=== PATIENT | male | born 1950 | race Hispanic/Latino ===

== ENCOUNTER 2016-07-28 06:07 | Inpatient (IN) | payer MEDICARE ==
[2016-07-28] MEDS ORDERED: NACL 0.9% 1000 ML 1,000 ML IV ONE ×2 (07:11→08:28)
[2016-07-28] MEDS ORDERED: MORPHINE IV ONE (07:11)
[2016-07-28] MEDS ORDERED: ZOFRAN IV ONE (07:11)
--- NOTE | 2016-07-28 07:51 | XRay Report ---
Single view chest: History: Trauma. Findings: Borderline cardiomegaly. Trachea is midline. No consolidation, pneumothorax or pleural effusion. Impression: No acute cardiopulmonary findings.
[2016-07-28 07:52] LABS: Basophils % (Auto) 0.4 % (0.0-1.8); Hematocrit 41.7 % (35.5-45.6); Hemoglobin 13.4 gm/dl (11.8-15.2); Mean Corpuscular HGB Conc 32 % (32-34); Mean Corpuscular Hemoglobin 30 pg (28-32); Mean Corpuscular Volume 94 fl (84-94); Platelet Count 235 K/mm3 (140-440); Red Blood Count 4.42 M/mm3 (3.65-5.03); Red Cell Distribution Width 14.3 % (13.2-15.2); White Blood Count 13.2 K/mm3 (4.5-11.0)
--- NOTE | 2016-07-28 07:54 | Admit Criteria Form ---
Admission Criteria Documentation: MUSCULOSKELETAL DISEASE GRG Clinical Indications for Admission to Inpatient Care (Place 'X' for any and all applicable criteria): Hospital admission is needed for appropriate care of the patient because of ANY ONE of the following: [X ]I. Fracture, dislocation, or other musculoskeletal injury requiring inpatient care(medical) as indicated by ANY ONE of the following(4)(5)(6)(7) [ ]a) Vertebral fracture requiring observation for instability or neurologic compromise (8) [ ]b) Compartment syndrome (proven or cannot be ruled out during observation level of care) (9) [ ]c) Limb-threatening injury [ ]d) Major injury requiring inpatient stabilization such as traction initiation or external fixation before internal fixation or closure of complex or open fracture [ X]e) Major injury requiring inpatient treatment after emergency or observation level care (as appropriate) [ ]f) Severe pain requiring acute inpatient management [ ]II. Newly diagnosed or suspected bone, joint, or orthopedic device infection (e.g., osteomyelitis, septic arthritis) needing ANY ONE of the following(1)(2)(3) [ ]a) IV antibiotics that cannot be initiated in other than inpatient setting (e.g., patient too unstable or home infusion not available) [ ]b) Device removal or replacement [ ]c) Bone or soft tissue debridement [ ]d) Joint drainage (drain placement or repetitive aspirations) [ ]III. Severe rheumatologic disease (e.g., systemic lupus erythematosus, rheumatoid arthritis) with complications or comorbidities (Also use Optimal Recovery Care Criteria or General Recovery Criteria as appropriate on the basis of predominant condition), including ANY ONE of the following(10 )(11)(12)(13) [ ]a) Severe infection (e.g., TRAY SETTER infection, sepsis) (14) [ ]b) Respiratory complications, including ANY ONE of the following: [ ]i) Pleural effusion with respiratory compromise [ ]ii) Pulmonary hypertension with congestive failure [ ]iii) Respiratory failure [ ]iv) Pulmonary hemorrhage (15) [ ]c) Hematologic disease, including ANY ONE of the following: [ ]i) Coagulopathy with bleeding [ ]ii) Thrombosis with hypercoagulable state [ ]iii) Thrombotic thrombocytopenic purpura [ ]d) Cerebritis with seizures, psychosis, or other severe abnormalities [ ]e) Vertebral destruction with monitoring needed for cervical myelopathy& possible respiratory compromise [ ]f) Exacerbation that requires inpatient treatment (e.g., intravenous immunosuppression) (16) [ ]g) Acute renal failure [ ]IV. Severe vasculitis with complications or comorbidities (Also use Optimal Recovery Care Criteria or General Recovery Criteria as appropriate on the basis of predominant condition), including ANY ONE of the following(11)(12)(17)(18)(19)(20) [ ]a) TRAY SETTER vasculitis with seizures, psychosis, or other severe abnormalities (22) [ ]b) Renal failure (16) [ ]c) Pulmonary hemorrhage (15) [ ]d) Cerebral infarction [ ]e) Gastrointestinal ischemia [ ]f) Gangrene or threatened amputation [ ]g) Exacerbation that requires inpatient treatment (e.g., intravenous immunosuppression) (19)(21) [ ]V. Severe myopathy as indicated by ANY ONE of the following (28)(29) [ ]a) New onset of airway compromise or inability to swallow [ ]b) Respiratory deterioration with observation needed for impending respiratory failure [ ]c) Exacerbation that requires inpatient treatment (e.g., intravenous immunosuppression) [ ]. Severe gout (crystal arthropathy) as indicated by ANY ONE of the following (23)(24) [ ]a) Severe pain requiring acute inpatient management [ ]b) Exacerbation that requires inpatient treatment (e.g., intravenous treatment) [ ]VII.Rhabdomyolysis and ANY ONE of the following (25)(26)(27) [ ]a) Acute renal failure [ ]b) Need for intravenous hydration after emergency or observation level care (as appropriate) [ ]c) Inability to maintain oral hydration [ ]d) Change in mental status [ ]e) Electrolyte abnormality that remains after emergency or observation level care (as appropriate) [ ]VIII Post amputation complication, as indicated by ANY ONE of the following [ ]a) Infection [ ]b) Dehiscence [ ]c) Myodesis failure [ ]IX. Severe pain requiring acute inpatient management as indicated by ALL of the following (30)(31)(32) [ ]a) Continuous or frequent (e.g., every 2 to 4 hrs) parenteral analgesics required [A] [ ]b) Rapid improvement expected from treatment or acute intervention ( e.g., surgery, anesthesia procedure[B] [ ]X. Musculoskeletal Disease and ALL of the following: [ ]a) Symptom or finding for which emergency and observation care have failed or are not considered appropriate (Use General Criteria: Observation Care as appropriate) [ ]b) Presence of ANY ONE of the following [ ]i) A General Admission Criteria [ ]ii) A Pediatric General Admission Criteria The original [facility] content created by [facility] has been revised. The portions of the content which have been revised are identified through the use of italic text or in bold, and [facility] has neither reviewed nor approved the modified material. All other unmodified content is copyright [facility]. Please see references footnoted in the original [facility] edition 2016 Admission Criteria Met: Yes
--- NOTE | 2016-07-28 07:55 | XRay Report ---
Left hip 2 views: History: Fall, pain. Findings: There is intertrochanteric nondisplaced fracture noted. No evidence of dislocation hip. Impression: Intertrochanteric fracture left femur.
[2016-07-28 08:01] LABS: Bilirubin,Urine NEG (Negative); Blood,Urine MOD (Negative); Ketones,Urine NEG (Negative); Leukocyte Esterase,Urine NEG (Negative); Mucus,Urine FEW /HPF; Nitrite,Urine NEG (Negative); Urobilinogen,Urine < 2.0 mg/dL (<2.0); WBC,Urine < 1.0 /HPF (0.0-6.0)
[2016-07-28 08:03] LABS: INR 0.94 (0.87-1.13)
[2016-07-28 08:04] LABS: Partial Thromboplastin Time 24.7 Sec. (24.2-36.6)
[2016-07-28 08:17] LABS: Anion Gap 27 mmol/L; BUN/Creatinine Ratio 22.66; Blood Urea Nitrogen 34 mg/dL (9-20); Carbon Dioxide 17 mmol/L (22-30); Chloride 106.8 mmol/L (98-107); Creatine Kinase 228 units/L (55-170); Glucose 98 mg/dL (75-100); Potassium 4.8 mmol/L (3.6-5.0); Sodium 146 mmol/L (137-145)
--- NOTE | 2016-07-28 08:26 | Emergency Department Report ---
ED General Adult HPI - General Chief complaint: Extremity Injury, Lower Stated complaint: FALL Time Seen by Provider: 07/28/16 06:45 Source: patient, EMS Mode of arrival: Stretcher Limitations: No Limitations - History of Present Illness Initial comments: The patient admits to drinking a pint of alcohol last night. He states he does have a residence and lives with a woman. He is not saying particularly kind things about his roommate at this juncture. In any case he believes he tripped and he fell down apparently injuring his left hip. Denies any other injury. He denies loss of consciousness. He was transferred reported via EMS for evaluation of hip pain. He denies neck or back pain. He denies intercurrent illness. -: Sudden Location: left, lower extremity Radiation: non-radiation Severity scale (0 -10): 10 Quality: aching Consistency: constant Improves with: none Worsens with: none Associated Symptoms: denies other symptoms Treatments Prior to Arrival: none - Related Data Home Medications Medication Instructions Recorded Confirmed Last Taken FLUoxetine [PROzac] 20 mg PO QDAY 12/26/14 12/26/14 12/26/14 Losartan [Cozaar] 50 mg PO QDAY 12/26/14 12/26/14 12/26/14 Allergies Allergy/AdvReac Type Severity Reaction Status Date / Time No Known Allergies Allergy Verified 08/14/13 22:42 ED Review of Systems ROS: Stated complaint: FALL Other details as noted in HPI Constitutional: denies: chills, fever Eyes: denies: eye pain, eye discharge, vision change ENT: denies: ear pain, throat pain Respiratory: denies: cough, shortness of breath, wheezing Cardiovascular: denies: chest pain, palpitations Endocrine: no symptoms reported Gastrointestinal: denies: abdominal pain, nausea, diarrhea Genitourinary: denies: urgency, dysuria Musculoskeletal: as per HPI. denies: back pain, joint swelling, arthralgia Skin: denies: rash, lesions Neurological: denies: headache, weakness, paresthesias Psychiatric: denies: anxiety, depression Hematological/Lymphatic: denies: easy bleeding, easy bruising ED Past Medical Hx - Past Medical History Previous Medical History?: Yes Hx Hypertension: Yes Hx Kidney Stones: Yes Hx Psychiatric Treatment: Yes Additional medical history: depression - Surgical History Past Surgical History?: Yes Additional Surgical History: colorectal surg - Social History Smoking Status: Current Every Day Smoker Substance Use Type: Alcohol - Medications Home Medications: Home Medications Medication Instructions Recorded Confirmed Last Taken Type FLUoxetine [PROzac] 20 mg PO QDAY 12/26/14 12/26/14 12/26/14 History Losartan [Cozaar] 50 mg PO QDAY 12/26/14 12/26/14 12/26/14 History ED Physical Exam - General Limitations: No Limitations General appearance: alert, in no apparent distress - Head Head exam: Present: atraumatic, normocephalic - Eye Eye exam: Present: normal appearance, PERRL, EOMI. Absent: scleral icterus - ENT ENT exam: Present: mucous membranes moist - Neck Neck exam: Present: normal inspection. Absent: tenderness, meningismus - Respiratory Respiratory exam: Present: normal lung sounds bilaterally. Absent: respiratory distress - Cardiovascular Cardiovascular Exam: Present: regular rate, normal rhythm. Absent: systolic murmur, diastolic murmur, rubs, gallop - GI/Abdominal GI/Abdominal exam: Present: soft, normal bowel sounds. Absent: distended, tenderness, guarding, rebound, rigid - Rectal Rectal exam: Present: deferred - Extremities Exam Extremities exam: Present: other (tenderness and possible shortening hip/lower extremity) - Back Exam Back exam: Present: normal inspection - Neurological Exam Neurological exam: Present: alert, oriented X3, CN II-XII intact. Absent: motor sensory deficit - Psychiatric Psychiatric exam: Present: agitated (mildly), anxious - Skin Skin exam: Present: warm, dry, intact, normal color. Absent: rash ED Course Vital Signs 07/28/16 07/28/16 07/28/16 06:19 06:28 07:20 Temperature 97.1 F L Pulse Rate 83 84 Respiratory 18 18 Rate Blood Pressure 205/83 Blood Pressure 205/83 206/103 [Left] O2 Sat by Pulse 97 97 98 Oximetry 07/28/16 07:21 Temperature Pulse Rate Respiratory 18 Rate Blood Pressure Blood Pressure [Left] O2 Sat by Pulse Oximetry - Reevaluation(s) Reevaluation #1: Discussed with Dr. Fletcher. He states he will operate this afternoon keep nothing by mouth. Discussed with Dr. Manning he will admit. 07/28/16 08:56 ED Medical Decision Making - Lab Data Result diagrams: 07/28/16 07:26 07/28/16 07:26 Laboratory Results - last 24 hr 07/28/16 07/28/16 07/28/16 07:26 07:26 07:26 WBC 13.2 H RBC 4.42 Hgb 13.4 Hct 41.7 MCV 94 MCH 30 MCHC 32 RDW 14.3 Plt Count 235 Lymph % (Auto) 5.2 L [place] % (Auto) 6.1 Eos % (Auto) 0.0 Baso % (Auto) 0.4 Lymph # 0.7 L [place] # 0.8 Eos # 0.0 Baso # 0.1 Seg Neutrophils % 88.3 H Seg Neutrophils # 11.6 H PT 12.5 INR 0.94 APTT 24.7 Sodium 146 H Potassium 4.8 Chloride 106.8 Carbon Dioxide 17 L Anion Gap 27 BUN 34 H Creatinine 1.5 Estimated GFR 47 BUN/Creatinine Ratio 22.66 Glucose 98 Calcium 9.0 Phosphorus Total Creatine Kinase 228 H Troponin T < 0.010 Urine Color Urine Turbidity Urine pH Ur Specific [place] Urine Protein Urine Glucose (UA) Urine Ketones Urine Blood Urine Nitrite Urine Bilirubin Urine Urobilinogen Ur Leukocyte Esterase Urine WBC (Auto) Urine RBC (Auto) Urine Mucus Blood Type Antibody Screen 07/28/16 07/28/16 07/28/16 07:26 07:26 07:36 WBC RBC Hgb Hct MCV MCH MCHC RDW Plt Count Lymph % (Auto) [place] % (Auto) Eos % (Auto) Baso % (Auto) Lymph # [place] # Eos # Baso # Seg Neutrophils % Seg Neutrophils # PT INR APTT Sodium Potassium Chloride Carbon Dioxide Anion Gap BUN Creatinine Estimated GFR BUN/Creatinine Ratio Glucose Calcium Phosphorus 4.0 Total Creatine Kinase Troponin T Urine Color Straw Urine Turbidity Clear Urine pH 5.0 Ur Specific [place] 1.013 Urine Protein 100 mg/dl Urine Glucose (UA) Neg Urine Ketones Neg Urine Blood Mod Urine Nitrite Neg Urine Bilirubin Neg Urine Urobilinogen < 2.0 Ur Leukocyte Esterase Neg Urine WBC (Auto) < 1.0 Urine RBC (Auto) 1.0 Urine Mucus Few Blood Type B POSITIVE Antibody Screen Negative - Radiology Data interpreted by me: Intertrochanteric hip fracture left. Chest x-ray no acute process. Critical care attestation.: If time is entered above; I have spent that time in minutes in the direct care of this critically ill patient, excluding procedure time. ED Disposition Clinical Impression: Renal insufficiency, Metabolic acidosis, increased anion gap, Prerenal azotemia , Uncontrolled hypertension Intertrochanteric fracture of left hip Qualifiers: Encounter type: initial encounter Fracture type: closed Qualified Code(s): S72.142A - Displaced intertrochanteric fracture of left femur, initial encounter for closed fracture Disposition: OP ADMITTED IP TO THIS HOSP Is pt being admited?: Yes Does the pt Need Aspirin: No (preop) Condition: Stable Instructions: Hypertension (ED) Referrals: PRIMARY CARE, [Primary Care Provider] - 3-5 Days Time of Disposition: 08:56
[2016-07-28] MEDS ORDERED: NORMODYNE IV ONE ×2 (08:40→09:46)
[2016-07-28] MEDS ORDERED: NORVASC PO ONE (09:06)
--- NOTE | 2016-07-28 09:19 | History and Physical Report ---
History of Present Illness Date of examination: 07/28/16 Date of admission: 07/28/16 Chief complaint: Fracture left hip from a fall History of present illness: Patient is a 66-year-old gentleman who fell after drinking a pint of alcohol. Was having pain in the left hip on arrival to the emergency department. X-ray of the hip showed left intratrochanteric fracture. The patient was found to be 200 110. Had elevated BUN/creatinine was as well as a total CK levels. The emergency room doctor, Dr. Rivas contacted the orthopedic surgeon Dr. Fletcher, who is planning for surgery today. Past History Past Medical History: hypertension Social history: denies: smoking, alcohol abuse Family history: denies: no significant family history Medications and Allergies Allergies Allergy/AdvReac Type Severity Reaction Status Date / Time No Known Allergies Allergy Verified 08/14/13 22:42 Home Medications Medication Instructions Recorded Confirmed Last Taken Type FLUoxetine [PROzac] 20 mg PO QDAY 12/26/14 12/26/14 12/26/14 History Losartan [Cozaar] 50 mg PO QDAY 12/26/14 12/26/14 12/26/14 History Active Meds: Active Medications Amlodipine Besylate (Norvasc) 10 mg PO ONCE ONE Stop: 07/28/16 09:07 Fluoxetine HCl (Prozac) 20 mg PO QDAY [facility] Hydralazine HCl (Apresoline) 10 mg IV Q8H PRN PRN Reason: Blood Pressure Sodium Chloride (Nacl 0.9% 1000 Ml) 1,000 mls @ 250 mls/hr IV ONCE ONE Stop: 07/28/16 11:10 Last Admin: 07/28/16 07:22 Dose: 250 mls/hr Sodium Chloride (Nacl 0.9% 1000 Ml) 1,000 mls @ 250 mls/hr IV ONCE ONE Stop: 07/28/16 12:27 Folic Acid 1 mg/ Multivitamins /Minerals 10 ml/ Thiamine HCl 100 mg/ Sodium Chloride 1,000 mls @ 125 mls/hr IV .BY DURATION [facility] Sodium Chloride (Nacl 0.9% 1000 Ml) 1,000 mls @ 125 mls/hr IV .BY DURATION [facility] Losartan Potassium (Cozaar) 100 mg PO QDAY [facility] Review of system Constitutional: Well Nouridhed and Well developed. Head: NC/ AT Eyes: Denies any visual impairments. No discharge from the eyes Nose: Denies any rhinorrhea or epistaxis Throats: Denies any post nasal drainage. Ears: Denies any hearing deficits Cardiovascular system: Denies any chest pain, shortness of breath, orthopnea, paroxysmal nocturnal dyspnea, or palpitation. Respiratory system: Denies any cough, difficulty breathing, wheezing, pleuritic chest pain, Gastrointestinal system: Denies any abdominal pain, nausea vomiting, hematemesis or melena. Neurological system: Denies any headache, slurred speech, facial droop, lateralizing weakness Genitalia system: Denies any dysuria, urinary frequency or urgency, urethral discharge Skin: No rashes, hyperpigmented spots. Hematological: Denies any cervical tenderness hemorrhages or petechia. Immunological: Denies any multiple septic spots, Lymphatic: Denies any generalized lymphadenopathy. Endocrine: Denies any polyuria, polydipsia, polyphagia. No heat or cold intolerance. MSK: Pain in the left hip Exam - Constitutional Vitals: Temp Pulse Resp BP Pulse Ox 97.1 F L 84 18 206/103 98 07/28/16 06:19 07/28/16 07:20 07/28/16 07:21 07/28/16 07:20 07/28/16 07:20 General appearance: Present: no acute distress, well-nourished - EENT Eyes: Present: PERRL ENT: hearing intact, clear oral mucosa - Neck Neck: Present: supple, normal ROM - Respiratory Respiratory effort: normal Respiratory: bilateral: CTA - Cardiovascular Heart Sounds: Present: S1 & S2. Absent: rub, click - Extremities Extremities: pulses symmetrical, No edema Peripheral Pulses: within normal limits - Abdominal General gastrointestinal: Present: soft, non-tender, non-distended, normal bowel sounds Male genitourinary: Present: normal - Integumentary Integumentary: Present: clear, warm, dry - Musculoskeletal Musculoskeletal: other (tenderness with reduced range of motion left hip) - Psychiatric Psychiatric: appropriate mood/affect, intact judgment & insight - Neurologic Neurologic: CNII-XII intact, moves all extremities Results - Labs CBC & Chem 7: 07/28/16 07:26 07/28/16 09:17 Labs: Abnormal lab results 07/28/16 07/28/16 Range/Units 07:26 07:26 WBC 13.2 H (4.5-11.0) K/mm3 Lymph % (Auto) 5.2 L (13.4-35.0) % Lymph # 0.7 L (1.2-5.4) K/mm3 Seg Neutrophils % 88.3 H (40.0-70.0) % Seg Neutrophils # 11.6 H (1.8-7.7) K/mm3 Sodium 146 H (137-145) mmol/L Carbon Dioxide 17 L (22-30) mmol/L BUN 34 H (9-20) mg/dL Total Creatine Kinase 228 H (55-170) units/L Assessment and Plan 1. Intratrochemnteric Fracture left hip: secondary to a fall after drinking one pint of alcohol. CXR, EKG, orthoconsulted by ED, DR. Ladd who plans to operatte today. Pt is NPO 2. Malignant hypertension: BP control with amlodipine, Losartan and iv hydrallazine for prn conteol 3. Metabolic acidosis with ions gap: LIkely friom ETOH abuse. IV hydration and NaHCO3 4. CHYNA: IV hydration 5. ETOH abuse: Alcohol cessation counseling was done. DVT precaution using CIWA protocol with Ativan 6. RhabdomyolysisL: IV hydration with NS 7. DVT prohylaxis with Lovenox after surgerya dn GI with Pepcid
[2016-07-28] MEDS ORDERED: NACL 0.9% 1000 ML 1,000 ML ONE ×2 (09:46→14:31)
[2016-07-28 09:51] LABS: Alanine Aminotransferase 14 units/L (7-56); Albumin 4.1 g/dL (3.9-5); Albumin/Globulin Ratio 1.4 %; Alkaline Phosphatase 80 units/L (35-129); Anion Gap 25 mmol/L; BUN/Creatinine Ratio 23.84; Bilirubin,Total < 0.2 mg/dL (0.1-1.2); Blood Urea Nitrogen 31 mg/dL (9-20); Calcium 8.5 mg/dL (8.4-10.2); Carbon Dioxide 17 mmol/L (22-30); Chloride 106.1 mmol/L (98-107); Glucose 86 mg/dL (75-100); Potassium 4.7 mmol/L (3.6-5.0); Sodium 143 mmol/L (137-145); Total Protein 7.1 g/dL (6.3-8.2)
[2016-07-28] MEDS ORDERED: NORVASC PO SCH (10:00)
[2016-07-28] MEDS: 1: FOLVITE 1 MG, INFUVITE 10 ML, VITAMIN B-1 100 MG in NACL 0.9% 1000 ML 988.8 ML 2: NA IV SCH ×2 (10:11→23:00)
[2016-07-28] MEDS: PROzac PO SCH (11:13)
[2016-07-28] MEDS: COZAAR PO SCH (11:13)
[2016-07-28] MEDS ORDERED: XYLOCAINE MPF 2% ONE (11:48)
[2016-07-28] MEDS ORDERED: DILAUDID ONE (11:48)
[2016-07-28] MEDS ORDERED: ZEMURON IV ONE (11:48)
[2016-07-28] MEDS ORDERED: DIPRIVAN 10 MG/ML IV ONE (11:51)
[2016-07-28] MEDS ORDERED: ANCEF/STERILE WATER 2 GM/20 ML IV NR (12:00)
--- NOTE | 2016-07-28 12:04 | Anesthesia Consultation ---
Anesthesia Consult and Med Hx Date of service: 07/28/16 - Airway Anesthetic Teeth Evaluation: Poor ROM Head & Neck: Adequate Mental/Hyoid Distance: Adequate Mallampati Class: Class II Intubation Access Assessment: Possibly Difficult - Pulmonary Exam CTA: Yes - Cardiac Exam Cardiac Exam: RRR - Pre-Operative Health Status ASA Pre-Surgery Classification: ASA4 Proposed Anesthetic Plan: General - Pre-Anesthesia Comment Pre-Anesthesia Comments: Patient has 2/6 systolic murmur heard best at RUSB. He has had mild SOB. - Pulmonary Hx Smoking: Yes (occasional smoker) SOB: Yes - Cardiovascular System Hx Hypertension: Yes Hx Heart Murmur: Yes (2/6 systolic) - Central Nervous System Hx Psychiatric Problems: Yes (alcoholism, ? depression) - Endocrine Hx Renal Disease: Yes (hx kidney stones; ) - Other Systems Hx Alcohol Use: Yes Hx Substance Use: Yes
--- NOTE | 2016-07-28 12:14 | Consultation ---
History of Present Illness - HPI Consult date: 07/28/16 Consult reason: fracture History of present illness: 66-year-old fell at home, developed painful limitation of movement left hip, unable to walk. Seen in emergency room with intertrochanteric fracture, orthopedic consult for fracture management. Past History Past Medical History: hypertension Social history: denies: smoking, alcohol abuse Family history: denies: no significant family history Medications and Allergies Allergies Allergy/AdvReac Type Severity Reaction Status Date / Time No Known Allergies Allergy Verified 08/14/13 22:42 Home Medications Medication Instructions Recorded Confirmed Last Taken Type FLUoxetine [PROzac] 20 mg PO QDAY 12/26/14 12/26/14 12/26/14 History Losartan [Cozaar] 50 mg PO QDAY 12/26/14 12/26/14 12/26/14 History Active Meds: Active Medications Amlodipine Besylate (Norvasc) 10 mg PO DAILY [facility] Last Admin: 07/28/16 11:13 Dose: 10 mg Cefazolin Sodium (Ancef/Sterile Water 2 Gm/20 Ml) 2 gm IV PREOP NR Stop: 07/31/16 11:59 Fluoxetine HCl (Prozac) 20 mg PO QDAY [facility] Last Admin: 07/28/16 11:13 Dose: 20 mg Hydralazine HCl (Apresoline) 10 mg IV Q8H PRN PRN Reason: Blood Pressure Sodium Chloride (Nacl 0.9% 1000 Ml) 1,000 mls @ 250 mls/hr IV ONCE ONE Stop: 07/28/16 12:27 Last Admin: 07/28/16 10:10 Dose: 250 mls/hr Folic Acid 1 mg/ Multivitamins /Minerals 10 ml/ Thiamine HCl 100 mg/ Sodium Chloride 1,000 mls @ 125 mls/hr IV .BY DURATION [facility] Last Admin: 07/28/16 10:11 Dose: 125 mls/hr Sodium Chloride (Nacl 0.9% 1000 Ml) 1,000 mls @ 125 mls/hr IV .BY DURATION [facility] Sodium Chloride (Nacl 0.9% 1000 Ml) 1,000 mls @ 150 mls/hr IV DIRECT [facility] Losartan Potassium (Cozaar) 100 mg PO QDAY [facility] Last Admin: 07/28/16 11:13 Dose: 100 mg Review of Systems All systems: negative Physical Examination - Hip left Gait: normal Tenderness with palpation: other (Left lower extremity with external rotation, painful limitation of movement of the hip, tenderness along the trochanter and anterior groin. No neurovascular deficit.) Assessment and Plan - Patient Problems (1) Intertrochanteric fracture of left hip Current Visit: Yes Status: Acute Qualifiers: Encounter type: initial encounter Fracture type: closed Open fracture type: O Fracture healing: F Qualified Code(s): S72.142A - Displaced intertrochanteric fracture of left femur, initial encounter for closed fracture Plan to address problem: Internal fixation Fx left hip
--- NOTE | 2016-07-28 12:16 | Anesthesia Day of Surgery ---
Anesthesia Day of Surgery - Day of Surgery Patient Examined: Yes Patient H&P Reviewed: Yes Patient is NPO: Yes
[2016-07-28] MEDS ORDERED: DILAUDID IV PRN (12:52)
[2016-07-28] MEDS ORDERED: ePHEDrine SULFATE ONE (13:40)
[2016-07-28] MEDS ORDERED: NACL 0.9% IR ONE (13:49)
[2016-07-28] MEDS ORDERED: ROBINUL ONE (14:12)
[2016-07-28] MEDS ORDERED: BLOXIVERZ ONE (14:12)
--- NOTE | 2016-07-28 14:12 | Procedure Note ---
Date of procedure: 07/28/16 Pre-op diagnosis: Intertroch Fx left hip Post-op diagnosis: same Procedure: TFN Nail fixation left hip Fx Anesthesia: GETA Surgeon: CARLY ROBB Estimated blood loss: minimal Condition: stable Disposition: PACU
[2016-07-28] MEDS: DILAUDID IV PRN ×2 (15:00→15:17)
--- NOTE | 2016-07-28 15:16 | XRay Report ---
LEFT HIP RADIOGRAPH INDICATION: Left hip fracture repair. COMPARISON: 7:03 AM earlier today. FINDINGS: AP/lateral intraoperative food stylist radiographs of the left hip, 1:37 PM, 07/28/2016 demonstrate the intertrochanteric fracture. Subsequent similar views from 2:03 PM, 07/28/2016 demonstrate a Zickel nail in place with preserved alignment. CONCLUSION: Intraoperative fluoroscopic guidance provided for left hip fracture stabilization, as described. Thank you for the opportunity to participate in this patient's care.
--- NOTE | 2016-07-28 15:16 | XRay Report ---
LEFT HIP RADIOGRAPH INDICATION: Left hip fracture repair. COMPARISON: 7:03 AM earlier today. FINDINGS: AP/lateral intraoperative slip cover estimator radiographs of the left hip, 1:37 PM, 07/28/2016 demonstrate the intertrochanteric fracture. Subsequent similar views from 2:03 PM, 07/28/2016 demonstrate a Zickel nail in place with preserved alignment. CONCLUSION: Intraoperative fluoroscopic guidance provided for left hip fracture stabilization, as described. Thank you for the opportunity to participate in this patient's care.
--- NOTE | 2016-07-28 15:29 | Post Anesthesia Evaluation ---
- Post Anesthesia Evaluation Patient Participated: Yes Airway Patent: Yes Stable Respiratory Function: Yes Temp > 96.8F: Yes Pain Manageable: Yes Adequeate Hydration: Yes Anesthesia Complications: No Block Receding Appropriately: Not Applicable
[2016-07-28] MEDS ORDERED: PHENERGAN PR PRN (16:58)
[2016-07-28] MEDS ORDERED: MILK OF MAGNESIA PO PRN (16:58)
[2016-07-28] MEDS ORDERED: ZOFRAN IV PRN (16:58)
[2016-07-28] MEDS ORDERED: AMBIEN PO PRN (16:58)
[2016-07-28] MEDS ORDERED: TYLENOL PO PRN (16:58)
[2016-07-28] MEDS ORDERED: SODIUM CHLORIDE FLUSH SYRINGE 10 ML IV NR (16:58)
--- NOTE | 2016-07-28 19:13 | Operative Report ---
PREOPERATIVE DIAGNOSIS: Intertrochanteric fracture, left hip. POSTOPERATIVE DIAGNOSIS: Intertrochanteric fracture, left hip. OPERATIVE PROCEDURE: Open reduction and stabilization of intertrochanteric fracture, left hip with TFN nail system. SURGEON: Robby Fletcher MD CHARGE ENTRY: Barb Quinteros CSA ANESTHESIA: General. BLOOD LOSS: Minimal. PROCEDURE IN DETAIL: The patient was taken to surgery suite, satisfactory analgesia obtained with general anesthetics. He was positioned on the fracture table. The fracture was reduced under fluoroscopy control with traction and internal rotation. The left hip area was prepped with ChloraPrep, satisfactorily draped. The correct patient, procedure, and surgical sites are confirmed. Incision was made proximal to the lesser trochanter. A guidepin was positioned at the tip of the trochanter and advanced across the fracture site. The guidepin position confirmed on fluoroscopy and the trochanter was reamed to 14 mm diameter to accommodate the TFN nail. Nail 11 mm diameter, 130-degree angle, and 170 mm length was then applied across the fracture site and satisfactorily positioned. Then, guidepin was positioned across the fracture site at 130-degree angle to the femoral shaft, position confirmed under fluoroscopy and far cortex was then reamed. Femoral neck was then reamed to accommodate a 95 mm helical screw and a 95 mm helical screw was applied and was locked in place. The distal screw was applied in the routine fashion and the nail was locked distally using a screw of 36 mm length. AP and lateral fluoroscopy showing satisfactory reduction and application of internal fixation device. Wound was closed in layers in the standard fashion. Hemostasis was satisfactory. The patient was transferred to recovery room with sterile dressings in place tolerated the procedure well and at the completion of procedure, counts were accurate. JOB# [id number] AVELINAN/MEREDITH
[2016-07-28] MEDS: ANCEF/NS 1 GM/50 ML 1 GM/50 ML BAG IV SCH (19:41)
[2016-07-28] MEDS: ASPIRIN PO SCH (22:30)
[2016-07-28] MEDS: ATIVAN IV PRN (22:30)
[2016-07-28] MEDS: APRESOLINE IV PRN (22:30)
[2016-07-29] MEDS: MORPHINE IV PRN ×2 (02:35→16:30)
[2016-07-29] MEDS: ANCEF/NS 1 GM/50 ML 1 GM/50 ML BAG IV SCH (04:00)
[2016-07-29 05:03] LABS: Hematocrit 38.1 % (35.5-45.6); Hemoglobin 12.3 gm/dl (11.8-15.2)
[2016-07-29 05:06] LABS: BUN/Creatinine Ratio 16.66; Calcium 7.9 mg/dL (8.4-10.2); Chloride 99.4 mmol/L (98-107); Potassium 4.4 mmol/L (3.6-5.0)
[2016-07-29] MEDS: ATIVAN IV PRN ×4 (07:15→23:03)
[2016-07-29] MEDS: APRESOLINE IV PRN (07:35)
[2016-07-29 08:54] LABS: Albumin 3.6 g/dL (3.9-5); Albumin/Globulin Ratio 1.1 %; BUN/Creatinine Ratio 17.14; Bilirubin,Total 0.4 mg/dL (0.1-1.2); Calcium 8.1 mg/dL (8.4-10.2); Chloride 100.5 mmol/L (98-107); Potassium 4.3 mmol/L (3.6-5.0); Total Protein 6.8 g/dL (6.3-8.2)
[2016-07-29 08:58] LABS: INR 1.04 (0.87-1.13)
[2016-07-29] MEDS: NACL 0.9% 1000 ML 1,000 ML IV SCH (09:53)
[2016-07-29] MEDS: THERAGRAN Tab PO SCH (09:53)
[2016-07-29] MEDS: COZAAR PO SCH (09:54)
[2016-07-29] MEDS: NORVASC PO SCH (09:54)
[2016-07-29] MEDS: ASPIRIN PO SCH ×2 (09:54→22:56)
[2016-07-29] MEDS: PROzac PO SCH (09:55)
--- NOTE | 2016-07-29 12:05 | Progress Note ---
Assessment and Plan - Patient Problems (1) Intertrochanteric fracture of left hip Current Visit: Yes Status: Acute Qualifiers: Encounter type: initial encounter Fracture type: closed Open fracture type: O Fracture healing: F Qualified Code(s): S72.142A - Displaced intertrochanteric fracture of left femur, initial encounter for closed fracture Plan to address problem: Continue with DVT prophylaxis, pain management. To start on rehabilitation program, partial weightbearing. Patient may be discharged to [facility]/SNF when cleared by medicine, bed available. Followup in the office in 10-14 days. [place] to be removed by 10th postoperative day. If patient is returning to office for followup from rehabilitation facility, he is to bring copies of the x -rays the hip AP lateral view, done within 48 hours of office visit. Subjective Date of service: 07/29/16 Interval history: Hip fracture, status post internal fixation. No new complaints. Objective Vital signs: Vital Signs - 12hr 07/29/16 07/29/16 07/29/16 00:23 05:52 07:00 Temperature 97.6 F 97.6 F 98.1 F Pulse Rate Pulse Rate [ 80 79 88 Right Radial] Respiratory 20 20 20 Rate Blood Pressure Blood Pressure 145/80 205/85 164/86 [Right Arm] O2 Sat by Pulse 97 98 Oximetry 07/29/16 07/29/16 07:35 09:54 Temperature Pulse Rate 88 88 Pulse Rate [ Right Radial] Respiratory Rate Blood Pressure 168/86 164/86 Blood Pressure [Right Arm] O2 Sat by Pulse Oximetry - Labs CBC & BMP: 07/29/16 17:11 07/29/16 08:03 Labs: Abnormal lab results 07/29/16 07/29/16 Range/Units 04:16 08:03 Sodium 136 L (137-145) mmol/L Carbon Dioxide 16 L 17 L (22-30) mmol/L BUN 25 H 24 H (9-20) mg/dL Glucose 108 H 104 H (75-100) mg/dL Calcium 7.9 L 8.1 L (8.4-10.2) mg/dL Albumin 3.6 L (3.9-5) g/dL
--- NOTE | 2016-07-29 14:39 | Progress Note ---
Assessment and Plan Assessment and plan: left hip intertrochanteric fracture status post open reduction and internal fixation by Dr. Fletcher on 07/28/16. Pain management with morphine IV when necessary Alcohol intoxication. Patient was drunk fell and broke his hip. Watch for alcohol withdrawal Alcohol abuse. Watch for withdrawal. Utilize CIWA protocol. Hypertension. Blood Pressure uncontrolled. Continue Cozaar from home. Add amlodipine 10 mg by mouth daily Full code status History Interval history: Pain left hip at surgical site Hospitalist Physical - Physical exam Narrative exam: Gen. appearance: not in acute distress, HEENT: Normocephalic, atraumatic Neck: supple , no JVD Lungs: clear to auscultation, bilaterally . no rales, no wheezes Heart: S1-S2 regular, no murmurs, rubs or gallop Abdomen:soft, non-tender, non-distended, normal bowel sounds Ext: dressing over left hip, mild tender over surgical site left hip Neuro : awake,drowsy , no focal signs Skin: no rashes - Constitutional Vitals: Temp Pulse Resp BP Pulse Ox 98.1 F 88 20 164/86 98 07/29/16 07:00 07/29/16 09:54 07/29/16 07:00 07/29/16 09:54 07/29/16 05:52 General appearance: Present: no acute distress, well-nourished Results - Labs CBC & Chem 7: 07/29/16 17:11 07/29/16 08:03 Labs: Laboratory Last Values WBC 13.2 K/mm3 (4.5-11.0) H 07/28/16 07:26 RBC 4.42 M/mm3 (3.65-5.03) 07/28/16 07:26 Hgb 12.3 gm/dl (11.8-15.2) 07/29/16 04:16 Hct 38.1 % (35.5-45.6) 07/29/16 04:16 MCV 94 fl (84-94) 07/28/16 07:26 MCH 30 pg (28-32) 07/28/16 07:26 MCHC 32 % (32-34) 07/28/16 07:26 RDW 14.3 % (13.2-15.2) 07/28/16 07:26 Plt Count 235 K/mm3 (140-440) 07/28/16 07:26 Lymph % (Auto) 5.2 % (13.4-35.0) L 07/28/16 07:26 [place] % (Auto) 6.1 % (0.0-7.3) 07/28/16 07:26 Eos % (Auto) 0.0 % (0.0-4.3) 07/28/16 07:26 Baso % (Auto) 0.4 % (0.0-1.8) 07/28/16 07:26 Lymph # 0.7 K/mm3 (1.2-5.4) L 07/28/16 07:26 [place] # 0.8 K/mm3 (0.0-0.8) 07/28/16 07:26 Eos # 0.0 K/mm3 (0.0-0.4) 07/28/16 07:26 Baso # 0.1 K/mm3 (0.0-0.1) 07/28/16 07:26 Seg Neutrophils % 88.3 % (40.0-70.0) H 07/28/16 07:26 Seg Neutrophils # 11.6 K/mm3 (1.8-7.7) H 07/28/16 07:26 PT 13.5 Sec. (12.2-14.9) 07/29/16 08:03 INR 1.04 (0.87-1.13) 07/29/16 08:03 APTT 24.7 Sec. (24.2-36.6) 07/28/16 07:26 Sodium 137 mmol/L (137-145) 07/29/16 08:03 Potassium 4.3 mmol/L (3.6-5.0) 07/29/16 08:03 Chloride 100.5 mmol/L (98-107) 07/29/16 08:03 Carbon Dioxide 17 mmol/L (22-30) L 07/29/16 08:03 Anion Gap 24 mmol/L 07/29/16 08:03 BUN 24 mg/dL (9-20) H 07/29/16 08:03 Creatinine 1.4 mg/dL (0.8-1.5) 07/29/16 08:03 Estimated GFR 51 ml/min 07/29/16 08:03 BUN/Creatinine Ratio 17.14 % 07/29/16 08:03 Glucose 104 mg/dL (75-100) H 07/29/16 08:03 Calcium 8.1 mg/dL (8.4-10.2) L 07/29/16 08:03 Phosphorus 4.0 mg/dL (2.5-4.5) 07/28/16 07:26 Total Bilirubin 0.4 mg/dL (0.1-1.2) 07/29/16 08:03 AST 30 units/L (5-40) 07/29/16 08:03 ALT 16 units/L (7-56) 07/29/16 08:03 Alkaline Phosphatase 72 units/L (35-129) 07/29/16 08:03 Total Creatine Kinase 228 units/L (55-170) H 07/28/16 07:26 Troponin T < 0.010 ng/mL (0.00-0.029) 07/28/16 07:26 Total Protein 6.8 g/dL (6.3-8.2) 07/29/16 08:03 Albumin 3.6 g/dL (3.9-5) L 07/29/16 08:03 Albumin/Globulin Ratio 1.1 % 07/29/16 08:03 Urine Color Straw (Yellow) 07/28/16 07:36 Urine Turbidity Clear (Clear) 07/28/16 07:36 Urine pH 5.0 (5.0-7.0) 07/28/16 07:36 Ur Specific [place] 1.013 (1.003-1.030) 07/28/16 07:36 Urine Protein 100 mg/dl mg/dL (Negative) 07/28/16 07:36 Urine Glucose (UA) Neg mg/dL (Negative) 07/28/16 07:36 Urine Ketones Neg mg/dL (Negative) 07/28/16 07:36 Urine Blood Mod (Negative) 07/28/16 07:36 Urine Nitrite Neg (Negative) 07/28/16 07:36 Urine Bilirubin Neg (Negative) 07/28/16 07:36 Urine Urobilinogen < 2.0 mg/dL (<2.0) 07/28/16 07:36 Ur Leukocyte Esterase Neg (Negative) 07/28/16 07:36 Urine WBC (Auto) < 1.0 /HPF (0.0-6.0) 07/28/16 07:36 Urine RBC (Auto) 1.0 /HPF (0.0-6.0) 07/28/16 07:36 Urine Mucus Few /HPF 07/28/16 07:36 Plasma/Serum Alcohol 0.15 gm% (0-0.07) H 07/28/16 08:44 Blood Type B POSITIVE 07/28/16 07:26 Antibody Screen Negative 07/28/16 07:26
[2016-07-29] MEDS: 1: FOLVITE 1 MG, INFUVITE 10 ML, VITAMIN B-1 100 MG in NACL 0.9% 1000 ML 988.8 ML 2: NA IV SCH (14:56)
[2016-07-29] MEDS ORDERED: NACL 0.9% 1000 ML ONE (15:13)
[2016-07-29 17:41] LABS: Basophils % (Auto) 0.4 % (0.0-1.8); Hematocrit 36.1 % (35.5-45.6); Hemoglobin 11.6 gm/dl (11.8-15.2); Mean Corpuscular HGB Conc 32 % (32-34); Mean Corpuscular Hemoglobin 30 pg (28-32); Mean Corpuscular Volume 94 fl (84-94); Platelet Count 206 K/mm3 (140-440); Red Blood Count 3.85 M/mm3 (3.65-5.03); Red Cell Distribution Width 14.6 % (13.2-15.2); White Blood Count 11.1 K/mm3 (4.5-11.0)
[2016-07-30] MEDS: NACL 0.9% 1000 ML 1,000 ML IV SCH (08:05)
[2016-07-30] MEDS: ATIVAN IV PRN ×2 (08:05→22:34)
--- NOTE | 2016-07-30 09:24 | Progress Note ---
Assessment and Plan Assessment and plan: left hip intertrochanteric fracture status post open reduction and internal fixation by Dr. Fletcher on 07/28/16. Pain management with morphine IV when necessary Alcohol intoxication. Patient was drunk fell and broke his left hip, s/p surgery. Now has alcohol withdrawal. Alcohol withdrawal syndrome. CIWA protocol. His heart rate and blood pressure high. Add atenolol 50 mg by mouth daily. Alcohol abuse. Watch for withdrawal. Utilize CIWA protocol. Hypertension. Blood Pressure uncontrolled. Continue Cozaar and Amlodipine. Atenolol 50 mg by mouth daily. Full code status History Interval history: Pain left hip at surgical site, tremors Hospitalist Physical - Physical exam Narrative exam: Gen. appearance: not in acute distress, HEENT: Normocephalic, atraumatic Neck: supple , no JVD Lungs: clear to auscultation, bilaterally . no rales, no wheezes Heart: S1-S2 regular, no murmurs, rubs or gallop Abdomen:soft, non-tender, non-distended, normal bowel sounds Ext: dressing over left hip, mild tender over surgical site left hip Neuro : awake,alert, tremors both hands,confused Skin: no rashes - Constitutional Vitals: Temp Pulse Resp BP Pulse Ox 98.3 F 98 H 20 175/90 94 07/30/16 04:00 07/30/16 04:00 07/30/16 04:00 07/30/16 04:00 07/30/16 04:00 General appearance: Present: no acute distress, well-nourished Results - Labs CBC & Chem 7: 07/29/16 17:11 07/29/16 08:03 Labs: Laboratory Last Values WBC 11.1 K/mm3 (4.5-11.0) H 07/29/16 17:11 RBC 3.85 M/mm3 (3.65-5.03) 07/29/16 17:11 Hgb 11.6 gm/dl (11.8-15.2) L 07/29/16 17:11 Hct 36.1 % (35.5-45.6) 07/29/16 17:11 MCV 94 fl (84-94) 07/29/16 17:11 MCH 30 pg (28-32) 07/29/16 17:11 MCHC 32 % (32-34) 07/29/16 17:11 RDW 14.6 % (13.2-15.2) 07/29/16 17:11 Plt Count 206 K/mm3 (140-440) 07/29/16 17:11 Lymph % (Auto) 9.2 % (13.4-35.0) L 07/29/16 17:11 [place] % (Auto) 10.4 % (0.0-7.3) H 07/29/16 17:11 Eos % (Auto) 0.0 % (0.0-4.3) 07/29/16 17:11 Baso % (Auto) 0.4 % (0.0-1.8) 07/29/16 17:11 Lymph # 1.0 K/mm3 (1.2-5.4) L 07/29/16 17:11 [place] # 1.2 K/mm3 (0.0-0.8) H 07/29/16 17:11 Eos # 0.0 K/mm3 (0.0-0.4) 07/29/16 17:11 Baso # 0.0 K/mm3 (0.0-0.1) 07/29/16 17:11 Seg Neutrophils % 80.0 % (40.0-70.0) H 07/29/16 17:11 Seg Neutrophils # 8.9 K/mm3 (1.8-7.7) H 07/29/16 17:11 PT 13.5 Sec. (12.2-14.9) 07/29/16 08:03 INR 1.04 (0.87-1.13) 07/29/16 08:03 APTT 24.7 Sec. (24.2-36.6) 07/28/16 07:26 Sodium 137 mmol/L (137-145) 07/29/16 08:03 Potassium 4.3 mmol/L (3.6-5.0) 07/29/16 08:03 Chloride 100.5 mmol/L (98-107) 07/29/16 08:03 Carbon Dioxide 17 mmol/L (22-30) L 07/29/16 08:03 Anion Gap 24 mmol/L 07/29/16 08:03 BUN 24 mg/dL (9-20) H 07/29/16 08:03 Creatinine 1.4 mg/dL (0.8-1.5) 07/29/16 08:03 Estimated GFR 51 ml/min 07/29/16 08:03 BUN/Creatinine Ratio 17.14 % 07/29/16 08:03 Glucose 104 mg/dL (75-100) H 07/29/16 08:03 Calcium 8.1 mg/dL (8.4-10.2) L 07/29/16 08:03 Phosphorus 4.0 mg/dL (2.5-4.5) 07/28/16 07:26 Total Bilirubin 0.4 mg/dL (0.1-1.2) 07/29/16 08:03 AST 30 units/L (5-40) 07/29/16 08:03 ALT 16 units/L (7-56) 07/29/16 08:03 Alkaline Phosphatase 72 units/L (35-129) 07/29/16 08:03 Total Creatine Kinase 228 units/L (55-170) H 07/28/16 07:26 Troponin T < 0.010 ng/mL (0.00-0.029) 07/28/16 07:26 Total Protein 6.8 g/dL (6.3-8.2) 07/29/16 08:03 Albumin 3.6 g/dL (3.9-5) L 07/29/16 08:03 Albumin/Globulin Ratio 1.1 % 07/29/16 08:03 Urine Color Straw (Yellow) 07/28/16 07:36 Urine Turbidity Clear (Clear) 07/28/16 07:36 Urine pH 5.0 (5.0-7.0) 07/28/16 07:36 Ur Specific [place] 1.013 (1.003-1.030) 07/28/16 07:36 Urine Protein 100 mg/dl mg/dL (Negative) 07/28/16 07:36 Urine Glucose (UA) Neg mg/dL (Negative) 07/28/16 07:36 Urine Ketones Neg mg/dL (Negative) 07/28/16 07:36 Urine Blood Mod (Negative) 07/28/16 07:36 Urine Nitrite Neg (Negative) 07/28/16 07:36 Urine Bilirubin Neg (Negative) 07/28/16 07:36 Urine Urobilinogen < 2.0 mg/dL (<2.0) 07/28/16 07:36 Ur Leukocyte Esterase Neg (Negative) 07/28/16 07:36 Urine WBC (Auto) < 1.0 /HPF (0.0-6.0) 07/28/16 07:36 Urine RBC (Auto) 1.0 /HPF (0.0-6.0) 07/28/16 07:36 Urine Mucus Few /HPF 07/28/16 07:36 Plasma/Serum Alcohol 0.15 gm% (0-0.07) H 07/28/16 08:44 Blood Type B POSITIVE 07/28/16 07:26 Antibody Screen Negative 07/28/16 07:26
[2016-07-30] MEDS: ASPIRIN PO SCH ×2 (09:45→22:38)
[2016-07-30] MEDS: THERAGRAN Tab PO SCH (09:45)
[2016-07-30] MEDS: PROzac PO SCH (09:45)
[2016-07-30] MEDS: NORVASC PO SCH (09:45)
[2016-07-30] MEDS: COZAAR PO SCH (09:45)
[2016-07-30] MEDS: MORPHINE IV PRN (09:55)
[2016-07-30 11:44] LABS: Alanine Aminotransferase 21 units/L (7-56); Alkaline Phosphatase 64 units/L (35-129); Anion Gap 20 mmol/L; BUN/Creatinine Ratio 13.33; Bilirubin,Total 0.6 mg/dL (0.1-1.2); Blood Urea Nitrogen 16 mg/dL (9-20); Calcium 8.2 mg/dL (8.4-10.2); Carbon Dioxide 19 mmol/L (22-30); Chloride 103.9 mmol/L (98-107); Glucose 113 mg/dL (75-100); Potassium 3.7 mmol/L (3.6-5.0); Sodium 139 mmol/L (137-145); Total Protein 6.1 g/dL (6.3-8.2)
[2016-07-30] MEDS: TENORMIN PO SCH (13:10)
[2016-07-30] MEDS: HEPARIN SUB-Q SCH ×2 (13:11→22:35)
[2016-07-30] MEDS ORDERED: NACL 0.9% 1000 ML ONE (15:13)
[2016-07-30] MEDS: 1: FOLVITE 1 MG, INFUVITE 10 ML, VITAMIN B-1 100 MG in NACL 0.9% 1000 ML 988.8 ML 2: NA IV SCH (15:41)
[2016-07-30 20:25] LABS: Basophils % (Auto) 0.4 % (0.0-1.8); Hematocrit 32.1 % (35.5-45.6); Hemoglobin 10.6 gm/dl (11.8-15.2); Mean Corpuscular HGB Conc 33 % (32-34); Mean Corpuscular Hemoglobin 31 pg (28-32); Mean Corpuscular Volume 93 fl (84-94); Platelet Count 187 K/mm3 (140-440); Red Blood Count 3.44 M/mm3 (3.65-5.03); Red Cell Distribution Width 14.7 % (13.2-15.2); White Blood Count 9.1 K/mm3 (4.5-11.0)
[2016-07-31] MEDS: 1: FOLVITE 1 MG, INFUVITE 10 ML, VITAMIN B-1 100 MG in NACL 0.9% 1000 ML 988.8 ML 2: NA IV SCH ×2 (00:40→11:20)
--- NOTE | 2016-07-31 08:25 | Progress Note ---
Assessment and Plan - Patient Problems (1) Intertrochanteric fracture of left hip Current Visit: Yes Status: Acute Qualifiers: Encounter type: initial encounter Fracture type: closed Open fracture type: O Fracture healing: F Qualified Code(s): S72.142A - Displaced intertrochanteric fracture of left femur, initial encounter for closed fracture Plan to address problem: Continue with DVT prophylaxis, pain management. To start on rehabilitation program, partial weightbearing. Patient may be discharged to [facility]/SNF when cleared by medicine, bed available. Followup in the office in 10-14 days. [place] to be removed by 10th postoperative day. If patient is returning to office for followup from rehabilitation facility, he is to bring copies of the x -rays the hip AP lateral view, done within 48 hours of office visit. Subjective Date of service: 07/31/16 Interval history: status post fracture fixation hip, no new complaints. Objective Vital signs: Vital Signs - 12hr 07/30/16 07/31/16 21:17 01:32 Temperature 97.4 F L 98.7 F Pulse Rate [ 69 Left Radial] Pulse Rate [ 69 Right Radial] Respiratory 20 20 Rate Blood Pressure 169/86 169/70 [Right Arm] O2 Sat by Pulse 95 97 Oximetry - Labs CBC & BMP: 07/30/16 18:34 07/30/16 10:48 Labs: Abnormal lab results 07/30/16 07/30/16 Range/Units 10:48 18:34 RBC 3.44 L (3.65-5.03) M/mm3 Hgb 10.6 L (11.8-15.2) gm/dl Hct 32.1 L (35.5-45.6) % Lymph % (Auto) 8.0 L (13.4-35.0) % [place] % (Auto) 7.4 H (0.0-7.3) % Lymph # 0.7 L (1.2-5.4) K/mm3 Seg Neutrophils % 83.2 H (40.0-70.0) % Carbon Dioxide 19 L (22-30) mmol/L Glucose 113 H (75-100) mg/dL Calcium 8.2 L (8.4-10.2) mg/dL Total Protein 6.1 L (6.3-8.2) g/dL Albumin 3.0 L (3.9-5) g/dL
[2016-07-31 09:23] LABS: INR 0.92 (0.87-1.13)
[2016-07-31] MEDS: MORPHINE IV PRN (11:20)
[2016-07-31] MEDS: ASPIRIN PO SCH ×2 (11:20→21:19)
[2016-07-31] MEDS: TENORMIN PO SCH (11:20)
[2016-07-31] MEDS: THERAGRAN Tab PO SCH (11:20)
[2016-07-31] MEDS: PROzac PO SCH (11:20)
[2016-07-31] MEDS: NORVASC PO SCH (11:20)
[2016-07-31] MEDS: NACL 0.9% 1000 ML 1,000 ML IV SCH (11:20)
[2016-07-31] MEDS: COZAAR PO SCH (11:20)
[2016-07-31] MEDS: HEPARIN SUB-Q SCH ×2 (14:36→21:21)
--- NOTE | 2016-07-31 14:57 | Progress Note ---
Assessment and Plan Assessment and plan: left hip intertrochanteric fracture status post open reduction and internal fixation by Dr. Fletcher on 07/28/16. Pain management with morphine IV when necessary Alcohol intoxication. Patient was drunk fell and broke his left hip, s/p surgery. Now has alcohol withdrawal. Alcohol withdrawal syndrome. Continue CIWA protocol. Improving, he is now AAO x 3, less tremors. Atenolol 50 mg by mouth daily added yesterday, controlling tachycardia. Alcohol abuse. Hypertension. Blood Pressure improving. Continue Cozaar , Amlodipine and Atenolol. Full code status Disposition. He was seen by physical therapist today. Will need rehabilitation - acute versus Subacute History Interval history: Less pain left hip at surgical site, feels better, less tremors Hospitalist Physical - Physical exam Narrative exam: Gen. appearance: not in acute distress, HEENT: Normocephalic, atraumatic Neck: supple , no JVD Lungs: clear to auscultation, bilaterally . no rales, no wheezes Heart: S1-S2 regular, no murmurs, rubs or gallop Abdomen:soft, non-tender, non-distended, normal bowel sounds Ext: dressing over left hip, mild tender over surgical site left hip Neuro : awake,alert, oriented to person, place and time Skin: no rashes - Constitutional Vitals: Temp Pulse Resp BP Pulse Ox 97.4 F L 67 21 149/78 99 07/31/16 08:20 07/31/16 08:20 07/31/16 08:20 07/31/16 08:20 07/31/16 08:20 General appearance: Present: no acute distress, well-nourished Results - Labs CBC & Chem 7: 07/30/16 18:34 07/30/16 10:48 Labs: Laboratory Last Values WBC 9.1 K/mm3 (4.5-11.0) 07/30/16 18:34 RBC 3.44 M/mm3 (3.65-5.03) L 07/30/16 18:34 Hgb 10.6 gm/dl (11.8-15.2) L 07/30/16 18:34 Hct 32.1 % (35.5-45.6) L 07/30/16 18:34 MCV 93 fl (84-94) 07/30/16 18:34 MCH 31 pg (28-32) 07/30/16 18:34 MCHC 33 % (32-34) 07/30/16 18:34 RDW 14.7 % (13.2-15.2) 07/30/16 18:34 Plt Count 187 K/mm3 (140-440) 07/30/16 18:34 Lymph % (Auto) 8.0 % (13.4-35.0) L 07/30/16 18:34 [place] % (Auto) 7.4 % (0.0-7.3) H 07/30/16 18:34 Eos % (Auto) 1.0 % (0.0-4.3) 07/30/16 18:34 Baso % (Auto) 0.4 % (0.0-1.8) 07/30/16 18:34 Lymph # 0.7 K/mm3 (1.2-5.4) L 07/30/16 18:34 [place] # 0.7 K/mm3 (0.0-0.8) 07/30/16 18:34 Eos # 0.1 K/mm3 (0.0-0.4) 07/30/16 18:34 Baso # 0.0 K/mm3 (0.0-0.1) 07/30/16 18:34 Seg Neutrophils % 83.2 % (40.0-70.0) H 07/30/16 18:34 Seg Neutrophils # 7.6 K/mm3 (1.8-7.7) 07/30/16 18:34 PT 12.3 Sec. (12.2-14.9) 07/31/16 09:04 INR 0.92 (0.87-1.13) 07/31/16 09:04 APTT 24.7 Sec. (24.2-36.6) 07/28/16 07:26 Sodium 139 mmol/L (137-145) 07/30/16 10:48 Potassium 3.7 mmol/L (3.6-5.0) 07/30/16 10:48 Chloride 103.9 mmol/L (98-107) 07/30/16 10:48 Carbon Dioxide 19 mmol/L (22-30) L 07/30/16 10:48 Anion Gap 20 mmol/L 07/30/16 10:48 BUN 16 mg/dL (9-20) 07/30/16 10:48 Creatinine 1.2 mg/dL (0.8-1.5) 07/30/16 10:48 Estimated GFR > 60 ml/min 07/30/16 10:48 BUN/Creatinine Ratio 13.33 % 07/30/16 10:48 Glucose 113 mg/dL (75-100) H 07/30/16 10:48 Calcium 8.2 mg/dL (8.4-10.2) L 07/30/16 10:48 Phosphorus 4.0 mg/dL (2.5-4.5) 07/28/16 07:26 Total Bilirubin 0.6 mg/dL (0.1-1.2) 07/30/16 10:48 AST 30 units/L (5-40) 07/30/16 10:48 ALT 21 units/L (7-56) 07/30/16 10:48 Alkaline Phosphatase 64 units/L (35-129) 07/30/16 10:48 Total Creatine Kinase 228 units/L (55-170) H 07/28/16 07:26 Troponin T < 0.010 ng/mL (0.00-0.029) 07/28/16 07:26 Total Protein 6.1 g/dL (6.3-8.2) L 07/30/16 10:48 Albumin 3.0 g/dL (3.9-5) L 07/30/16 10:48 Albumin/Globulin Ratio 1.0 % 07/30/16 10:48 Urine Color Straw (Yellow) 07/28/16 07:36 Urine Turbidity Clear (Clear) 07/28/16 07:36 Urine pH 5.0 (5.0-7.0) 07/28/16 07:36 Ur Specific [place] 1.013 (1.003-1.030) 07/28/16 07:36 Urine Protein 100 mg/dl mg/dL (Negative) 07/28/16 07:36 Urine Glucose (UA) Neg mg/dL (Negative) 07/28/16 07:36 Urine Ketones Neg mg/dL (Negative) 07/28/16 07:36 Urine Blood Mod (Negative) 07/28/16 07:36 Urine Nitrite Neg (Negative) 07/28/16 07:36 Urine Bilirubin Neg (Negative) 07/28/16 07:36 Urine Urobilinogen < 2.0 mg/dL (<2.0) 07/28/16 07:36 Ur Leukocyte Esterase Neg (Negative) 07/28/16 07:36 Urine WBC (Auto) < 1.0 /HPF (0.0-6.0) 07/28/16 07:36 Urine RBC (Auto) 1.0 /HPF (0.0-6.0) 07/28/16 07:36 Urine Mucus Few /HPF 07/28/16 07:36 Plasma/Serum Alcohol 0.15 gm% (0-0.07) H 07/28/16 08:44 Blood Type B POSITIVE 07/28/16 07:26 Antibody Screen Negative 07/28/16 07:26
[2016-07-31] MEDS ORDERED: NACL 0.9% 1000 ML ONE (15:13)
[2016-07-31 17:26] LABS: Basophils % (Auto) 0.7 % (0.0-1.8); Eosinophils % (Auto) 1.1 % (0.0-4.3); Hemoglobin 10.1 gm/dl (11.8-15.2); Mean Corpuscular HGB Conc 34 % (32-34); Mean Corpuscular Hemoglobin 31 pg (28-32); Mean Corpuscular Volume 93 fl (84-94); Platelet Count 203 K/mm3 (140-440); Red Blood Count 3.24 M/mm3 (3.65-5.03); Red Cell Distribution Width 14.3 % (13.2-15.2); White Blood Count 9.6 K/mm3 (4.5-11.0)
[2016-08-01] MEDS: 1: FOLVITE 1 MG, INFUVITE 10 ML, VITAMIN B-1 100 MG in NACL 0.9% 1000 ML 988.8 ML 2: NA IV SCH ×2 (03:49→09:25)
[2016-08-01 05:19] LABS: Anion Gap 16 mmol/L; BUN/Creatinine Ratio 18.33; Blood Urea Nitrogen 22 mg/dL (9-20); Calcium 8.2 mg/dL (8.4-10.2); Carbon Dioxide 21 mmol/L (22-30); Chloride 102.6 mmol/L (98-107); Glucose 105 mg/dL (75-100); Sodium 136 mmol/L (137-145)
[2016-08-01] MEDS: HEPARIN SUB-Q SCH ×3 (05:35→21:19)
--- NOTE | 2016-08-01 07:16 | Progress Note ---
Assessment and Plan alert orientated in mild pain s/p ORIF fx hip. wound ok waiting discharge. Subjective Date of service: 08/01/16 Objective Vital signs: Vital Signs - 12hr 07/31/16 07/31/16 08/01/16 20:00 22:00 00:00 Temperature 98.5 F 97.9 F Pulse Rate [ 61 60 Left Brachial] Respiratory 20 18 20 Rate Blood Pressure 126/73 141/82 [Left Arm] O2 Sat by Pulse 94 95 Oximetry 08/01/16 04:00 Temperature 97.6 F Pulse Rate [ 57 L Left Brachial] Respiratory 20 Rate Blood Pressure 147/78 [Left Arm] O2 Sat by Pulse 97 Oximetry - Labs CBC & BMP: 07/31/16 17:08 08/01/16 04:43 Labs: Abnormal lab results 07/31/16 08/01/16 Range/Units 17:08 04:43 RBC 3.24 L (3.65-5.03) M/mm3 Hgb 10.1 L (11.8-15.2) gm/dl Hct 30.0 L (35.5-45.6) % Lymph % (Auto) 9.2 L (13.4-35.0) % [place] % (Auto) 7.6 H (0.0-7.3) % Lymph # 0.9 L (1.2-5.4) K/mm3 Seg Neutrophils % 81.4 H (40.0-70.0) % Seg Neutrophils # 7.8 H (1.8-7.7) K/mm3 Sodium 136 L (137-145) mmol/L Carbon Dioxide 21 L (22-30) mmol/L BUN 22 H (9-20) mg/dL Glucose 105 H (75-100) mg/dL Calcium 8.2 L (8.4-10.2) mg/dL
--- NOTE | 2016-08-01 08:44 | Progress Note ---
Assessment and Plan Assessment and plan: left hip intertrochanteric fracture * status post open reduction and internal fixation by Dr. Fletcher on 07/28/16. * Pain management with morphine IV when necessary * continue PT Alcohol intoxication. * Patient was drunk fell and broke his left hip, s/p surgery. * following admission had alcohol withdrawal. * counselled for cessation Alcohol withdrawal syndrome. * Continue CIWA protocol. * Improving, he is now AAO x 3, less tremors. * Atenolol 50 mg by mouth daily added to control tachycardia. Alcohol abuse. * counselled for cessation Hypertension. * Blood Pressure improving. * Continue Cozaar , Amlodipine and Atenolol. Full code status Disposition. Will need rehabilitation - acute versus Subacute, CM notified History Interval history: Patient seen and examined. Medical records and medication list reviewed. No acute event overnight noted by the RN. Patient denies any chest pain or difficulty breathing. Patient is tolerating diet. He c/o generalized weakness and not able to fully participate in PT Discussed plan of care at bedside with patient. Hospitalist Physical - Physical exam Narrative exam: Gen. appearance: not in acute distress, HEENT: Normocephalic, atraumatic Neck: supple , no JVD Lungs: clear to auscultation, bilaterally . no rales, no wheezes Heart: S1-S2 regular, no murmurs, rubs or gallop Abdomen:soft, non-tender, non-distended, normal bowel sounds Ext: dressing over left hip, mild tender over surgical site left hip Neuro : awake,alert, oriented to person, place and time Skin: no rashes - Constitutional Vitals: Temp Pulse Resp BP Pulse Ox 97 F L 59 L 16 148/81 96 08/01/16 08:00 08/01/16 08:00 08/01/16 08:00 08/01/16 08:00 08/01/16 08:00 General appearance: Present: no acute distress, well-nourished Results - Labs CBC & Chem 7: 07/31/16 17:08 08/01/16 04:43 Labs: Laboratory Last Values WBC 9.6 K/mm3 (4.5-11.0) 07/31/16 17:08 RBC 3.24 M/mm3 (3.65-5.03) L 07/31/16 17:08 Hgb 10.1 gm/dl (11.8-15.2) L 07/31/16 17:08 Hct 30.0 % (35.5-45.6) L 07/31/16 17:08 MCV 93 fl (84-94) 07/31/16 17:08 MCH 31 pg (28-32) 07/31/16 17:08 MCHC 34 % (32-34) 07/31/16 17:08 RDW 14.3 % (13.2-15.2) 07/31/16 17:08 Plt Count 203 K/mm3 (140-440) 07/31/16 17:08 Lymph % (Auto) 9.2 % (13.4-35.0) L 07/31/16 17:08 [place] % (Auto) 7.6 % (0.0-7.3) H 07/31/16 17:08 Eos % (Auto) 1.1 % (0.0-4.3) 07/31/16 17:08 Baso % (Auto) 0.7 % (0.0-1.8) 07/31/16 17:08 Lymph # 0.9 K/mm3 (1.2-5.4) L 07/31/16 17:08 [place] # 0.7 K/mm3 (0.0-0.8) 07/31/16 17:08 Eos # 0.1 K/mm3 (0.0-0.4) 07/31/16 17:08 Baso # 0.1 K/mm3 (0.0-0.1) 07/31/16 17:08 Seg Neutrophils % 81.4 % (40.0-70.0) H 07/31/16 17:08 Seg Neutrophils # 7.8 K/mm3 (1.8-7.7) H 07/31/16 17:08 PT 12.3 Sec. (12.2-14.9) 07/31/16 09:04 INR 0.92 (0.87-1.13) 07/31/16 09:04 APTT 24.7 Sec. (24.2-36.6) 07/28/16 07:26 Sodium 136 mmol/L (137-145) L 08/01/16 04:43 Potassium 4.0 mmol/L (3.6-5.0) 08/01/16 04:43 Chloride 102.6 mmol/L (98-107) 08/01/16 04:43 Carbon Dioxide 21 mmol/L (22-30) L 08/01/16 04:43 Anion Gap 16 mmol/L 08/01/16 04:43 BUN 22 mg/dL (9-20) H 08/01/16 04:43 Creatinine 1.2 mg/dL (0.8-1.5) 08/01/16 04:43 Estimated GFR > 60 ml/min 08/01/16 04:43 BUN/Creatinine Ratio 18.33 % 08/01/16 04:43 Glucose 105 mg/dL (75-100) H 08/01/16 04:43 Calcium 8.2 mg/dL (8.4-10.2) L 08/01/16 04:43 Phosphorus 4.0 mg/dL (2.5-4.5) 07/28/16 07:26 Total Bilirubin 0.6 mg/dL (0.1-1.2) 07/30/16 10:48 AST 30 units/L (5-40) 07/30/16 10:48 ALT 21 units/L (7-56) 07/30/16 10:48 Alkaline Phosphatase 64 units/L (35-129) 07/30/16 10:48 Total Creatine Kinase 228 units/L (55-170) H 07/28/16 07:26 Troponin T < 0.010 ng/mL (0.00-0.029) 07/28/16 07:26 Total Protein 6.1 g/dL (6.3-8.2) L 07/30/16 10:48 Albumin 3.0 g/dL (3.9-5) L 07/30/16 10:48 Albumin/Globulin Ratio 1.0 % 07/30/16 10:48 Urine Color Straw (Yellow) 07/28/16 07:36 Urine Turbidity Clear (Clear) 07/28/16 07:36 Urine pH 5.0 (5.0-7.0) 07/28/16 07:36 Ur Specific [place] 1.013 (1.003-1.030) 07/28/16 07:36 Urine Protein 100 mg/dl mg/dL (Negative) 07/28/16 07:36 Urine Glucose (UA) Neg mg/dL (Negative) 07/28/16 07:36 Urine Ketones Neg mg/dL (Negative) 07/28/16 07:36 Urine Blood Mod (Negative) 07/28/16 07:36 Urine Nitrite Neg (Negative) 07/28/16 07:36 Urine Bilirubin Neg (Negative) 07/28/16 07:36 Urine Urobilinogen < 2.0 mg/dL (<2.0) 07/28/16 07:36 Ur Leukocyte Esterase Neg (Negative) 07/28/16 07:36 Urine WBC (Auto) < 1.0 /HPF (0.0-6.0) 07/28/16 07:36 Urine RBC (Auto) 1.0 /HPF (0.0-6.0) 07/28/16 07:36 Urine Mucus Few /HPF 07/28/16 07:36 Plasma/Serum Alcohol 0.15 gm% (0-0.07) H 07/28/16 08:44 Blood Type B POSITIVE 07/28/16 07:26 Antibody Screen Negative 07/28/16 07:26
[2016-08-01 09:13] LABS: INR 0.86 (0.87-1.13)
[2016-08-01] MEDS: THERAGRAN Tab PO SCH (09:24)
[2016-08-01] MEDS: ASPIRIN PO SCH ×2 (09:24→21:17)
[2016-08-01] MEDS: COZAAR PO SCH (09:24)
[2016-08-01] MEDS: PROzac PO SCH (09:25)
[2016-08-01] MEDS: TENORMIN PO SCH (09:26)
[2016-08-01] MEDS: NORVASC PO SCH (09:26)
--- NOTE | 2016-08-01 12:59 | Consultation ---
History of Present Illness - Reason for Consult Consult date: 08/01/16 Evaluate for Acute IRU - History of Present Illness 66 y.o. male s/p fall at home while under the influence of alcohol. Pt fell outside of the home and was down for several hours until he was found by neighbors. Pt found to have a intertrochanteric fracture of the left femur; s/ p ORIF on 07/28, PWB post-op. Consult requested for post-acute care placement recommendations. Past History Past Medical History: hypertension Past Surgical History: bowel surgery Social history: smoking, alcohol abuse, other (lives with girlfriend) Family history: no significant family history, hypertension Medications and Allergies Allergies Allergy/AdvReac Type Severity Reaction Status Date / Time No Known Allergies Allergy Verified 08/14/13 22:42 Home Medications Medication Instructions Recorded Confirmed Last Taken Type FLUoxetine [PROzac] 20 mg PO QDAY 12/26/14 12/26/14 12/26/14 History Losartan [Cozaar] 50 mg PO QDAY 12/26/14 12/26/14 12/26/14 History Active Meds: Active Medications Acetaminophen (Tylenol) 650 mg PO Q4H PRN PRN Reason: Pain MILD(1-3)/Fever >100.5/[place] Amlodipine Besylate (Norvasc) 10 mg PO QDAY [facility] Last Admin: 08/01/16 09:26 Dose: 10 mg Aspirin (Aspirin) 325 mg PO BID [facility] Last Admin: 08/01/16 09:24 Dose: 325 mg Atenolol (Tenormin) 50 mg PO QDAY [facility] Last Admin: 08/01/16 09:26 Dose: 50 mg Fluoxetine HCl (Prozac) 20 mg PO QDAY [facility] Last Admin: 08/01/16 09:25 Dose: 20 mg Heparin Sodium (Porcine) (Heparin) 5,000 unit SUB-Q Q8HR [facility] Last Admin: 08/01/16 05:35 Dose: 5,000 unit Hydralazine HCl (Apresoline) 10 mg IV Q8H PRN PRN Reason: Blood Pressure Last Admin: 07/29/16 07:35 Dose: 10 mg Folic Acid 1 mg/ Multivitamins /Minerals 10 ml/ Thiamine HCl 100 mg/ Sodium Chloride 1,000 mls @ 125 mls/hr IV .BY DURATION [facility] Last Admin: 07/31/16 11:20 Dose: 125 mls/hr Sodium Chloride (Nacl 0.9% 1000 Ml) 1,000 mls @ 125 mls/hr IV .BY DURATION [facility] Last Admin: 08/01/16 03:49 Dose: 125 mls/hr Sodium Chloride (Nacl 0.9% 1000 Ml) 1,000 mls @ 150 mls/hr IV DIRECT [facility] Last Admin: 07/31/16 11:20 Dose: 150 mls/hr Lorazepam (Ativan) 2 mg IV Q4H PRN PRN Reason: Agitation Last Admin: 07/30/16 22:34 Dose: 2 mg Losartan Potassium (Cozaar) 100 mg PO QDAY [facility] Last Admin: 08/01/16 09:24 Dose: 100 mg Magnesium Hydroxide (Milk Of Magnesia) 30 ml PO Q4H PRN PRN Reason: Constipation Morphine Sulfate (Morphine) 2 mg IV Q4H PRN PRN Reason: Pain, Moderate (4-6) Last Admin: 07/29/16 02:35 Dose: 2 mg Morphine Sulfate (Morphine) 4 mg IV Q4H PRN PRN Reason: Pain , Severe (7-10) Last Admin: 07/31/16 11:20 Dose: 4 mg Multivitamins (Theragran Tab) 1 each PO QDAY [facility] Last Admin: 08/01/16 09:24 Dose: 1 each Ondansetron HCl (Zofran) 4 mg IV Q8H PRN PRN Reason: Nausea And Vomiting Promethazine HCl (Phenergan) 25 mg [place] Q6H PRN PRN Reason: Nausea And Vomiting Zolpidem Tartrate (Ambien) 5 mg PO QHS PRN PRN Reason: Sleep Review of Systems All systems: negative Ears, nose, mouth and throat: no headache Cardiovascular: no chest pain, no lightheadedness Respiratory: no cough, no shortness of breath Gastrointestinal: constipation, no nausea, no vomiting Genitourinary Male: no dysuria Musculoskeletal: other (610 at left hip) Exam - Constitutional Vitals: Vital Signs - 12hr 08/01/16 08/01/16 08/01/16 04:00 08:00 09:24 Temperature 97.6 F 97 F L Pulse Rate 59 L Pulse Rate [ 57 L 59 L Left Brachial] Respiratory 20 16 Rate Blood Pressure 148/81 Blood Pressure 147/78 148/81 [Left Arm] O2 Sat by Pulse 97 96 Oximetry 08/01/16 08/01/16 09:26 12:00 Temperature 97.9 F Pulse Rate 59 L Pulse Rate [ 60 Left Brachial] Respiratory 16 Rate Blood Pressure 148/81 Blood Pressure 138/77 [Left Arm] O2 Sat by Pulse Oximetry General appearance: no acute distress, other (sitting up in bed, eating lunch; girlfriend present) - EENT Eyes: EOM intact ENT: hearing intact - Neck Neck: supple, normal ROM - Respiratory Respiratory effort: normal Respiratory: bilateral: CTA - Cardiovascular Rhythm: regular Heart Sounds: Present: S1 & S2 - Extremities Extremities: No edema Extremity abnormal: other (post-op dressing to left hip; abduction wedge in place, intact ankle DF/PF bilaterally; moves BUE without difficulty) - Gastrointestinal General gastrointestinal: Present: soft, non-tender, non-distended, normal bowel sounds - Neurologic Neurologic: CNII-XII intact, other (sensation grossly intact) - Psychiatric Psychiatric: appropriate mood/affect, intact judgment & insight, memory intact, cooperative - Allied health notes Allied health notes reviewed: PT (modA for transfers and gait, ambulated 17 feet with RW) FIMS assesment as documented by PT/OT/ST: Locomotion- walk/wheelchair Ambulation Distance 17 - Labs CBC & Chem 7: 07/31/16 17:08 08/01/16 04:43 Labs: Laboratory Results - last 72 hr 07/29/16 07/30/16 07/30/16 17:11 10:48 10:48 WBC 11.1 H RBC 3.85 Hgb 11.6 L Hct 36.1 MCV 94 MCH 30 MCHC 32 RDW 14.6 Plt Count 206 Lymph % (Auto) 9.2 L [place] % (Auto) 10.4 H Eos % (Auto) 0.0 Baso % (Auto) 0.4 Lymph # 1.0 L [place] # 1.2 H Eos # 0.0 Baso # 0.0 Seg Neutrophils % 80.0 H Seg Neutrophils # 8.9 H PT 13.1 INR 1.00 Sodium 139 Potassium 3.7 Chloride 103.9 Carbon Dioxide 19 L Anion Gap 20 BUN 16 Creatinine 1.2 Estimated GFR > 60 BUN/Creatinine Ratio 13.33 Glucose 113 H Calcium 8.2 L Total Bilirubin 0.6 AST 30 ALT 21 Alkaline Phosphatase 64 Total Protein 6.1 L Albumin 3.0 L Albumin/Globulin Ratio 1.0 07/30/16 07/31/16 07/31/16 18:34 09:04 17:08 WBC 9.1 9.6 RBC 3.44 L 3.24 L Hgb 10.6 L 10.1 L Hct 32.1 L 30.0 L MCV 93 93 MCH 31 31 MCHC 33 34 RDW 14.7 14.3 Plt Count 187 203 Lymph % (Auto) 8.0 L 9.2 L [place] % (Auto) 7.4 H 7.6 H Eos % (Auto) 1.0 1.1 Baso % (Auto) 0.4 0.7 Lymph # 0.7 L 0.9 L [place] # 0.7 0.7 Eos # 0.1 0.1 Baso # 0.0 0.1 Seg Neutrophils % 83.2 H 81.4 H Seg Neutrophils # 7.6 7.8 H PT 12.3 INR 0.92 Sodium Potassium Chloride Carbon Dioxide Anion Gap BUN Creatinine Estimated GFR BUN/Creatinine Ratio Glucose Calcium Total Bilirubin AST ALT Alkaline Phosphatase Total Protein Albumin Albumin/Globulin Ratio 08/01/16 08/01/16 04:43 08:51 WBC RBC Hgb Hct MCV MCH MCHC RDW Plt Count Lymph % (Auto) [place] % (Auto) Eos % (Auto) Baso % (Auto) Lymph # [place] # Eos # Baso # Seg Neutrophils % Seg Neutrophils # PT 11.6 L INR 0.86 L Sodium 136 L Potassium 4.0 Chloride 102.6 Carbon Dioxide 21 L Anion Gap 16 BUN 22 H Creatinine 1.2 Estimated GFR > 60 BUN/Creatinine Ratio 18.33 Glucose 105 H Calcium 8.2 L Total Bilirubin AST ALT Alkaline Phosphatase Total Protein Albumin Albumin/Globulin Ratio Assessment and Plan Patient was assessed and evaluated for Acute Inpatient Rehab Unit. 66 y.o. male s/p fall with subsequent intertrochanteric fracture of the left femur. Pt is POD# 4; PWB to LLE. Pt noted to require modA for transfers and gait; previously independent for ADLs, gait, transfers prior to admission. Rehab options discussed with pt and girlfriend on this morning. Pt is a member of [employer] through [employer] and is required have rehab services provided with contracted facilities; CM made aware and will assist with placement. Ongoing management per IM for HTN, pain control, anemia. Thank you for consultation. - Patient Problems (1) Intertrochanteric fracture of left hip Current Visit: Yes Status: Acute Qualifiers: Encounter type: initial encounter Fracture type: closed Open fracture type: O Fracture healing: F Qualified Code(s): S72.142A - Displaced intertrochanteric fracture of left femur, initial encounter for closed fracture (2) Unsteady gait Current Visit: Yes Status: Acute (3) Uncontrolled hypertension Current Visit: Yes Status: Acute
[2016-08-01] MEDS ORDERED: NACL 0.9% 1000 ML ONE (15:14)
[2016-08-01] MEDS: MORPHINE IV PRN (21:18)
[2016-08-02] MEDS: 1: FOLVITE 1 MG, INFUVITE 10 ML, VITAMIN B-1 100 MG in NACL 0.9% 1000 ML 988.8 ML 2: NA IV SCH ×2 (01:41→14:57)
[2016-08-02] MEDS: HEPARIN SUB-Q SCH ×3 (05:23→23:03)
[2016-08-02] MEDS: COZAAR PO SCH (09:10)
[2016-08-02] MEDS: ASPIRIN PO SCH ×2 (09:10→23:02)
[2016-08-02] MEDS: THERAGRAN Tab PO SCH (09:10)
[2016-08-02] MEDS: TENORMIN PO SCH (09:11)
[2016-08-02] MEDS: NORVASC PO SCH (09:12)
[2016-08-02] MEDS: PROzac PO SCH (09:16)
[2016-08-02] MEDS: MORPHINE IV PRN (09:18)
[2016-08-02 09:58] LABS: INR 0.93 (0.87-1.13)
--- NOTE | 2016-08-02 11:50 | Discharge Summary ---
Providers - Providers Date of Admission: 07/28/16 09:01 Date of discharge: 08/04/16 Attending physician: ZOEY GEORGES 07/28/16 16:58 Consult to Case Management [CONS] Routine Services Needed at Discharge: Death Clearance Coordinator Notified:: Dr. Fletcher If yes, spoke with:: Dr. Fletcher Time called:: 12:00 Comment:: disch planning Additional Physician Instructions: CM notified Natacha. Natacha spoke directly with Dr. Fletcher. Physical Therapy Evaluation and Treat [CONS] Routine Comment: Reason For Exam: fx hip Weight bearing status?: Partial wt bearing 07/31/16 10:46 Physical Therapy Evaluation and Treat [CONS] Routine Comment: Reason For Exam: hip fracture 07/31/16 16:11 Consult Acute Rehabilitation [CONS] Routine Consulting Provider: XENA PARRA Reason For Exam: left hip fracture Primary care physician: [facility] RN Hospitalization Condition: Stable Hospital course: Disease diagnosis: left hip intertrochanteric fracture * status post open reduction and internal fixation by Dr. Fletcher on 07/28/16. * continue PT Alcohol intoxication. * Patient was drunk fell and broke his left hip, s/p surgery. * following admission had alcohol withdrawal. * counselled for cessation Alcohol withdrawal syndrome. * Continued on CIWA protocol following admission * Improved, he is now AAO x 3, less tremors. * Atenolol 50 mg by mouth daily added to control tachycardia. Alcohol abuse. * counselled for cessation Hypertension. * Blood Pressure improving. * Continue Cozaar , Amlodipine and Atenolol. Disposition: DC/TX HOME UNDER HOME HEALTH Time spent for discharge: 35 minutes Core Measure Documentation - Palliative Care Palliative Care/ Comfort Measures: Not Applicable - Core Measures Any of the following diagnoses?: none Exam - Physical Exam Narrative exam: Gen. appearance: not in acute distress, HEENT: Normocephalic, atraumatic Neck: supple , no JVD Lungs: clear to auscultation, bilaterally . no rales, no wheezes Heart: S1-S2 regular, no murmurs, rubs or gallop Abdomen: soft, non-tender, non-distended, normal bowel sounds Ext: dressing over left hip, mild tender over surgical site left hip Neuro : awake,alert, oriented to person, place and time Skin: no rashes - Constitutional Vitals: Temp Pulse Resp BP Pulse Ox 97.9 F 69 18 152/87 98 08/02/16 08:00 08/02/16 09:12 08/02/16 08:00 08/02/16 09:12 08/02/16 08:00 Plan Activity: up only with assistance, fall precautions Weight Bearing Status: Non-Weight Bearing Diet: low cholesterol, low salt Wound: keep clean and dry, per your surgeon's advice Follow up with: PRIMARY CARE, [Primary Care Provider] - 3-5 Days Prescriptions: amLODIPine [Norvasc] 10 mg PO QDAY #30 tablet Atenolol [Tenormin] 50 mg PO QDAY #30 tablet
--- NOTE | 2016-08-02 15:09 | Progress Note ---
Assessment and Plan - Patient Problems (1) Intertrochanteric fracture of left hip Current Visit: Yes Status: Acute Qualifiers: Encounter type: initial encounter Fracture type: closed Open fracture type: O Fracture healing: F Qualified Code(s): S72.142A - Displaced intertrochanteric fracture of left femur, initial encounter for closed fracture Plan to address problem: Continue with DVT prophylaxis, pain management. To start on rehabilitation program, partial weightbearing. Patient may be discharged to [facility] when cleared by medicine, bed available. Followup in the office in 10-14 days. Hemlock to be removed by 10th postoperative day. If patient is returning to office for followup from rehabilitation facility, he is to bring copies of the x -rays the hip AP lateral view, done within 48 hours of office visit. Subjective Date of service: 08/02/16 Interval history: status post fracture fixation hip, no new complaints. Objective Vital signs: Vital Signs - 12hr 08/02/16 08/02/16 08/02/16 08:00 09:10 09:11 Temperature 97.9 F Pulse Rate 69 69 Pulse Rate [ 69 Left Brachial] Respiratory 18 Rate Respiratory Rate [Left Hip] Blood Pressure 152/87 152/87 Blood Pressure 152/87 [Left Arm] O2 Sat by Pulse 98 Oximetry 08/02/16 08/02/16 09:12 10:00 Temperature Pulse Rate 69 Pulse Rate [ Left Brachial] Respiratory 18 Rate Respiratory 18 Rate [Left Hip] Blood Pressure 152/87 Blood Pressure [Left Arm] O2 Sat by Pulse Oximetry - Labs CBC & BMP: 07/31/16 17:08 08/01/16 04:43
[2016-08-02] MEDS ORDERED: NACL 0.9% 1000 ML ONE (15:14)
--- NOTE | 2016-08-02 20:25 | Progress Note ---
Assessment and Plan Assessment and plan: left hip intertrochanteric fracture * status post open reduction and internal fixation by Dr. Fletcher on 07/28/16. * Pain management with morphine IV when necessary * continue PT Alcohol intoxication. * Patient was drunk, fell and broke his left hip, s/p surgery. * following admission had alcohol withdrawal. * counselled for cessation Alcohol withdrawal syndrome. * Continue CIWA protocol. * Improving, he is now AAO x 3, less tremors. * Atenolol 50 mg by mouth daily added to control tachycardia. Alcohol abuse. * counselled for cessation Hypertension. * Blood Pressure improving. * Continue Cozaar , Amlodipine and Atenolol. Full code status Disposition. Will need rehabilitation - acute versus Subacute, CM notified History Interval history: Patient seen and examined. Medical records and medication list reviewed. No acute event overnight noted by the RN. Patient denies any chest pain or difficulty breathing. Patient is tolerating diet. He is waiting for placement Hospitalist Physical - Physical exam Narrative exam: Gen. appearance: not in acute distress, HEENT: Normocephalic, atraumatic Neck: supple , no JVD Lungs: clear to auscultation, bilaterally . no rales, no wheezes Heart: S1-S2 regular, no murmurs, rubs or gallop Abdomen: soft, non-tender, non-distended, normal bowel sounds Ext: dressing over left hip, mild tender over surgical site left hip Neuro : awake,alert, oriented to person, place and time Skin: no rashes - Constitutional Vitals: Temp Pulse Resp BP Pulse Ox 98.1 F 95 H 18 141/83 98 08/02/16 16:43 08/02/16 16:43 08/02/16 16:43 08/02/16 16:43 08/02/16 08:00 General appearance: Present: no acute distress, well-nourished Results - Labs CBC & Chem 7: 07/31/16 17:08 08/01/16 04:43 Labs: Laboratory Last Values WBC 9.6 K/mm3 (4.5-11.0) 07/31/16 17:08 RBC 3.24 M/mm3 (3.65-5.03) L 07/31/16 17:08 Hgb 10.1 gm/dl (11.8-15.2) L 07/31/16 17:08 Hct 30.0 % (35.5-45.6) L 07/31/16 17:08 MCV 93 fl (84-94) 07/31/16 17:08 MCH 31 pg (28-32) 07/31/16 17:08 MCHC 34 % (32-34) 07/31/16 17:08 RDW 14.3 % (13.2-15.2) 07/31/16 17:08 Plt Count 203 K/mm3 (140-440) 07/31/16 17:08 Lymph % (Auto) 9.2 % (13.4-35.0) L 07/31/16 17:08 [place] % (Auto) 7.6 % (0.0-7.3) H 07/31/16 17:08 Eos % (Auto) 1.1 % (0.0-4.3) 07/31/16 17:08 Baso % (Auto) 0.7 % (0.0-1.8) 07/31/16 17:08 Lymph # 0.9 K/mm3 (1.2-5.4) L 07/31/16 17:08 [place] # 0.7 K/mm3 (0.0-0.8) 07/31/16 17:08 Eos # 0.1 K/mm3 (0.0-0.4) 07/31/16 17:08 Baso # 0.1 K/mm3 (0.0-0.1) 07/31/16 17:08 Seg Neutrophils % 81.4 % (40.0-70.0) H 07/31/16 17:08 Seg Neutrophils # 7.8 K/mm3 (1.8-7.7) H 07/31/16 17:08 PT 12.4 Sec. (12.2-14.9) 08/02/16 08:57 INR 0.93 (0.87-1.13) 08/02/16 08:57 APTT 24.7 Sec. (24.2-36.6) 07/28/16 07:26 Sodium 136 mmol/L (137-145) L 08/01/16 04:43 Potassium 4.0 mmol/L (3.6-5.0) 08/01/16 04:43 Chloride 102.6 mmol/L (98-107) 08/01/16 04:43 Carbon Dioxide 21 mmol/L (22-30) L 08/01/16 04:43 Anion Gap 16 mmol/L 08/01/16 04:43 BUN 22 mg/dL (9-20) H 08/01/16 04:43 Creatinine 1.2 mg/dL (0.8-1.5) 08/01/16 04:43 Estimated GFR > 60 ml/min 08/01/16 04:43 BUN/Creatinine Ratio 18.33 % 08/01/16 04:43 Glucose 105 mg/dL (75-100) H 08/01/16 04:43 Calcium 8.2 mg/dL (8.4-10.2) L 08/01/16 04:43 Phosphorus 4.0 mg/dL (2.5-4.5) 07/28/16 07:26 Total Bilirubin 0.6 mg/dL (0.1-1.2) 07/30/16 10:48 AST 30 units/L (5-40) 07/30/16 10:48 ALT 21 units/L (7-56) 07/30/16 10:48 Alkaline Phosphatase 64 units/L (35-129) 07/30/16 10:48 Total Creatine Kinase 228 units/L (55-170) H 07/28/16 07:26 Troponin T < 0.010 ng/mL (0.00-0.029) 07/28/16 07:26 Total Protein 6.1 g/dL (6.3-8.2) L 07/30/16 10:48 Albumin 3.0 g/dL (3.9-5) L 07/30/16 10:48 Albumin/Globulin Ratio 1.0 % 07/30/16 10:48 Urine Color Straw (Yellow) 07/28/16 07:36 Urine Turbidity Clear (Clear) 07/28/16 07:36 Urine pH 5.0 (5.0-7.0) 07/28/16 07:36 Ur Specific [place] 1.013 (1.003-1.030) 07/28/16 07:36 Urine Protein 100 mg/dl mg/dL (Negative) 07/28/16 07:36 Urine Glucose (UA) Neg mg/dL (Negative) 07/28/16 07:36 Urine Ketones Neg mg/dL (Negative) 07/28/16 07:36 Urine Blood Mod (Negative) 07/28/16 07:36 Urine Nitrite Neg (Negative) 07/28/16 07:36 Urine Bilirubin Neg (Negative) 07/28/16 07:36 Urine Urobilinogen < 2.0 mg/dL (<2.0) 07/28/16 07:36 Ur Leukocyte Esterase Neg (Negative) 07/28/16 07:36 Urine WBC (Auto) < 1.0 /HPF (0.0-6.0) 07/28/16 07:36 Urine RBC (Auto) 1.0 /HPF (0.0-6.0) 07/28/16 07:36 Urine Mucus Few /HPF 07/28/16 07:36 Plasma/Serum Alcohol 0.15 gm% (0-0.07) H 07/28/16 08:44 Blood Type B POSITIVE 07/28/16 07:26 Antibody Screen Negative 07/28/16 07:26
[2016-08-03] MEDS: ATIVAN IV PRN ×2 (02:13→20:30)
[2016-08-03] MEDS: HEPARIN SUB-Q SCH ×4 (06:26→23:26)
[2016-08-03] MEDS: MORPHINE IV PRN ×2 (07:40→12:04)
[2016-08-03] MEDS: NORVASC PO SCH (09:03)
[2016-08-03] MEDS: THERAGRAN Tab PO SCH (09:04)
[2016-08-03] MEDS: ASPIRIN PO SCH ×2 (09:04→23:26)
[2016-08-03] MEDS: TENORMIN PO SCH (09:05)
[2016-08-03] MEDS: PROzac PO SCH (09:05)
--- NOTE | 2016-08-03 14:39 | Progress Note ---
Assessment and Plan Assessment and plan: left hip intertrochanteric fracture * status post open reduction and internal fixation by Dr. Fletcher on 07/28/16. * Pain management with morphine IV when necessary * continue PT Alcohol intoxication. * Patient was drunk, fell and broke his left hip, s/p surgery. * following admission had alcohol withdrawal. * counselled for cessation Alcohol withdrawal syndrome. * Continue CIWA protocol. * Improving, he is now AAO x 3, less tremors. * Atenolol 50 mg by mouth daily added to control tachycardia. Alcohol abuse. * counselled for cessation Hypertension. * Blood Pressure improving. * Continue Cozaar , Amlodipine and Atenolol. Full code status Disposition. Will need rehabilitation - acute versus Subacute, CM notified, waiting for placement History Interval history: Patient seen and examined. Medical records and medication list reviewed. No acute event overnight noted by the RN. Patient denies any chest pain or difficulty breathing. Patient is tolerating diet. He is waiting for placement Hospitalist Physical - Physical exam Narrative exam: Gen. appearance: not in acute distress, HEENT: Normocephalic, atraumatic Neck: supple , no JVD Lungs: clear to auscultation, bilaterally . no rales, no wheezes Heart: S1-S2 regular, no murmurs, rubs or gallop Abdomen: soft, non-tender, non-distended, normal bowel sounds Ext: left hip restricted movement Neuro : awake,alert, oriented to person, place and time Skin: no rashes - Constitutional Vitals: Temp Pulse Resp BP Pulse Ox 97.9 F 65 18 154/82 96 08/03/16 08:00 08/03/16 09:05 08/03/16 08:00 08/03/16 09:05 08/03/16 08:00 General appearance: Present: no acute distress, well-nourished Results - Labs CBC & Chem 7: 07/31/16 17:08 08/01/16 04:43 Labs: Laboratory Last Values WBC 9.6 K/mm3 (4.5-11.0) 07/31/16 17:08 RBC 3.24 M/mm3 (3.65-5.03) L 07/31/16 17:08 Hgb 10.1 gm/dl (11.8-15.2) L 07/31/16 17:08 Hct 30.0 % (35.5-45.6) L 07/31/16 17:08 MCV 93 fl (84-94) 07/31/16 17:08 MCH 31 pg (28-32) 07/31/16 17:08 MCHC 34 % (32-34) 07/31/16 17:08 RDW 14.3 % (13.2-15.2) 07/31/16 17:08 Plt Count 203 K/mm3 (140-440) 07/31/16 17:08 Lymph % (Auto) 9.2 % (13.4-35.0) L 07/31/16 17:08 [place] % (Auto) 7.6 % (0.0-7.3) H 07/31/16 17:08 Eos % (Auto) 1.1 % (0.0-4.3) 07/31/16 17:08 Baso % (Auto) 0.7 % (0.0-1.8) 07/31/16 17:08 Lymph # 0.9 K/mm3 (1.2-5.4) L 07/31/16 17:08 [place] # 0.7 K/mm3 (0.0-0.8) 07/31/16 17:08 Eos # 0.1 K/mm3 (0.0-0.4) 07/31/16 17:08 Baso # 0.1 K/mm3 (0.0-0.1) 07/31/16 17:08 Seg Neutrophils % 81.4 % (40.0-70.0) H 07/31/16 17:08 Seg Neutrophils # 7.8 K/mm3 (1.8-7.7) H 07/31/16 17:08 PT 12.4 Sec. (12.2-14.9) 08/02/16 08:57 INR 0.93 (0.87-1.13) 08/02/16 08:57 APTT 24.7 Sec. (24.2-36.6) 07/28/16 07:26 Sodium 136 mmol/L (137-145) L 08/01/16 04:43 Potassium 4.0 mmol/L (3.6-5.0) 08/01/16 04:43 Chloride 102.6 mmol/L (98-107) 08/01/16 04:43 Carbon Dioxide 21 mmol/L (22-30) L 08/01/16 04:43 Anion Gap 16 mmol/L 08/01/16 04:43 BUN 22 mg/dL (9-20) H 08/01/16 04:43 Creatinine 1.2 mg/dL (0.8-1.5) 08/01/16 04:43 Estimated GFR > 60 ml/min 08/01/16 04:43 BUN/Creatinine Ratio 18.33 % 08/01/16 04:43 Glucose 105 mg/dL (75-100) H 08/01/16 04:43 Calcium 8.2 mg/dL (8.4-10.2) L 08/01/16 04:43 Phosphorus 4.0 mg/dL (2.5-4.5) 07/28/16 07:26 Total Bilirubin 0.6 mg/dL (0.1-1.2) 07/30/16 10:48 AST 30 units/L (5-40) 07/30/16 10:48 ALT 21 units/L (7-56) 07/30/16 10:48 Alkaline Phosphatase 64 units/L (35-129) 07/30/16 10:48 Total Creatine Kinase 228 units/L (55-170) H 07/28/16 07:26 Troponin T < 0.010 ng/mL (0.00-0.029) 07/28/16 07:26 Total Protein 6.1 g/dL (6.3-8.2) L 07/30/16 10:48 Albumin 3.0 g/dL (3.9-5) L 07/30/16 10:48 Albumin/Globulin Ratio 1.0 % 07/30/16 10:48 Urine Color Straw (Yellow) 07/28/16 07:36 Urine Turbidity Clear (Clear) 07/28/16 07:36 Urine pH 5.0 (5.0-7.0) 07/28/16 07:36 Ur Specific [place] 1.013 (1.003-1.030) 07/28/16 07:36 Urine Protein 100 mg/dl mg/dL (Negative) 07/28/16 07:36 Urine Glucose (UA) Neg mg/dL (Negative) 07/28/16 07:36 Urine Ketones Neg mg/dL (Negative) 07/28/16 07:36 Urine Blood Mod (Negative) 07/28/16 07:36 Urine Nitrite Neg (Negative) 07/28/16 07:36 Urine Bilirubin Neg (Negative) 07/28/16 07:36 Urine Urobilinogen < 2.0 mg/dL (<2.0) 07/28/16 07:36 Ur Leukocyte Esterase Neg (Negative) 07/28/16 07:36 Urine WBC (Auto) < 1.0 /HPF (0.0-6.0) 07/28/16 07:36 Urine RBC (Auto) 1.0 /HPF (0.0-6.0) 07/28/16 07:36 Urine Mucus Few /HPF 07/28/16 07:36 Plasma/Serum Alcohol 0.15 gm% (0-0.07) H 07/28/16 08:44 Blood Type B POSITIVE 07/28/16 07:26 Antibody Screen Negative 07/28/16 07:26
[2016-08-03] MEDS: 1: FOLVITE 1 MG, INFUVITE 10 ML, VITAMIN B-1 100 MG in NACL 0.9% 1000 ML 988.8 ML 2: NA IV SCH (17:41)
[2016-08-03] MEDS: COZAAR PO SCH (18:00)
[2016-08-04] MEDS: HEPARIN SUB-Q SCH (06:24)
[2016-08-04] MEDS ORDERED: NACL 0.9% 1000 ML 1,000 ML IV SCH (08:00)
[2016-08-04] MEDS ORDERED: FOLVITE PO SCH (10:00)
[2016-08-04] MEDS ORDERED: VITAMIN B-1 PO SCH (10:00)
[2016-08-04 11:12] VITALS: BP 142/79
== END 2016-08-04 12:50 | disposition home health service (06) | DRG 481 ==
LOC: ED 06:07 → 3A 09:01 → 2B-SURG 14:48
PROVIDERS: ADMIT Family Medicine; ATTEND Internal Medicine
PROC: 0QS704Z Reposition Left Upper Femur with Internal Fixation Device, Open Approach (ICD-10-PCS; principal; 2016-07-28)
DX: S72.142A Displaced intertrochanteric fracture of left femur, initial encounter for closed fracture (principal); E87.2 Acidosis; N17.9 Acute kidney failure, unspecified; F10.239 Alcohol dependence with withdrawal, unspecified; M62.82 Rhabdomyolysis; I10 Essential (primary) hypertension; F32.9 Major depressive disorder, single episode, unspecified; F17.210 Nicotine dependence, cigarettes, uncomplicated; F10.229 Alcohol dependence with intoxication, unspecified; W19.XXXA Unspecified fall, initial encounter; Y93.89 Activity, other specified; Y92.89 Other specified places as the place of occurrence of the external cause; Y99.8 Other external cause status; Z79.899 Other long term (current) drug therapy
CPT/HCPCS: 36415; 71010; 80048; 80053; 80320; 81001; 82550; 84100; 84484; 85014; 85018; 85025; 85610; 85730; 86850; 86900; 86901; 87086; 99406; C1713; C1769; G0480; G8978-GP; G8979-GP; J0360; J0690; J1170; J1644; J2060; J2270; J2405; J2704; J2710; J3411; J7030

== ENCOUNTER 2020-01-20 11:37 | Emergency (ER) | payer MEDICARE ==
[2020-01-20] MEDS ORDERED: DEXTROSE 50% IN WATER (25GM) 50 ML SYRINGE IV ONE ×2 (12:05→12:27)
--- NOTE | 2020-01-20 14:01 | XRay Report ---
CHEST 1 VIEW INDICATION: fall PAIN. COMPARISON: 07/28/2016 FINDINGS: Support devices: None. Heart: Stable borderline cardiomegaly. Lungs/Pleura: No acute air space or interstitial disease. Additional findings: None. IMPRESSION: No acute findings. PELVIS ONE VIEW INDICATION: fall PAIN. COMPARISON: None. IMPRESSION: No acute pelvic fracture or diastasis is appreciated. There has been previous internal f ixation of a proximal left femur fracture. No significant DJD. Signer Name: Иван Staples Jr, MD Signed: 01/20/2020 1:57 PM Workstation Name: [id number]
--- NOTE | 2020-01-20 14:24 | Cat Scan Report ---
CT HEAD WITHOUT CONTRAST INDICATION / CLINICAL INFORMATION: head injury. TECHNIQUE: Axial imaging performed from the skull apex through the skull base without the use of cont rast. Sagittal and coronal reformatted images. All CT scans at this location are performed using CT dose reduction for ALARA by means of automated exposure control. COMPARISON: None available. FINDINGS: CEREBRAL PARENCHYMA: Mild cortical volume loss and mild chronic white matter changes are noted bilate rally. 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 Similar appearing focal cortical infarct is identified in the anterior right temporal lobe as well. No acute parenchymal abnormality is appreciated. HEMORRHAGE: None. EXTRA-AXIAL SPACES: Normal in size and morphology for the patient's age. VENTRICULAR SYSTEM: Normal in size and morphology for the patient's age. MIDLINE SHIFT OR HERNIATION: None. CEREBELLUM / BRAINSTEM: No significant abnormality. CALVARIUM: No significant abnormality. ORBITS: Normal as visualized. PARANASAL SINUSES / MASTOID AIR CELLS: Normal as visualized. SOFT TISSUES of HEAD: There is moderate right periorbital soft tissue swelling. No associated fractur e is appreciated. ADDITIONAL FINDINGS: None. IMPRESSION: No acute intracranial abnormality. Right periorbital soft tissue swelling. Signer Name: Иван Staples Jr, MD Signed: 01/20/2020 2:20 PM Workstation Name: [id number]
--- NOTE | 2020-01-20 14:29 | Emergency Department Report ---
ED General Adult HPI - General Chief complaint: Alcohol Stated complaint: DIABETIC Time Seen by Provider: 01/20/20 12:03 Source: EMS Mode of arrival: Stretcher Limitations: No Limitations - History of Present Illness Initial comments: The patient presents to the emergency department via EMS for medical evaluation. Patient was found on the side of road by PD and EMS was contacted and the patient was transported to the emergency department. The patient states he has a headache and does not remember passing out. He does endorse using alcohol. Upon ED arrival to patient's glucose was 32. An amp of D50 was given. -: unknown Location: head, neck Radiation: non-radiation Severity scale (0 -10): 2 Quality: aching Consistency: constant Improves with: none Worsens with: none Associated Symptoms: denies other symptoms Treatments Prior to Arrival: none - Related Data Home Medications Medication Instructions Recorded Confirmed Last Taken FLUoxetine [PROzac] 20 mg PO QDAY 12/26/14 12/26/14 12/26/14 Losartan [Cozaar] 50 mg PO QDAY 12/26/14 12/26/14 12/26/14 Previous Rx's Medication Instructions Recorded Last Taken Type amLODIPine 10 mg PO QDAY #30 tablet 08/02/16 Unknown Rx atenoloL [Tenormin] 50 mg PO QDAY #30 tablet 08/02/16 Unknown Rx Thiamine [Vitamin B-1] 100 mg PO QDAY #30 tablet 08/04/16 Unknown Rx oxyCODONE /ACETAMINOPHEN [Percocet 1 tab PO Q6HR PRN #30 tablet 08/04/16 Unknown Rx 5/325] Allergies Allergy/AdvReac Type Severity Reaction Status Date / Time No Known Allergies Allergy Verified 08/14/13 22:42 ED Review of Systems ROS: Stated complaint: DIABETIC Other details as noted in HPI Constitutional: denies: chills, fever Eyes: denies: eye pain, eye discharge, vision change ENT: denies: ear pain, throat pain Respiratory: denies: cough, shortness of breath, wheezing Cardiovascular: denies: chest pain, palpitations Endocrine: no symptoms reported Gastrointestinal: denies: abdominal pain, nausea, diarrhea Genitourinary: denies: urgency, dysuria Musculoskeletal: denies: back pain, joint swelling, arthralgia Skin: denies: rash, lesions Neurological: headache. denies: weakness, paresthesias Psychiatric: denies: anxiety, depression Hematological/Lymphatic: denies: easy bleeding, easy bruising ED Past Medical Hx - Past Medical History Previous Medical History?: Yes Hx Hypertension: Yes Hx Renal Disease: Yes (hx kidney stones; ) Hx Kidney Stones: Yes Hx Psychiatric Treatment: Yes Hx HIV: No Additional medical history: ETOH, depression - Surgical History Past Surgical History?: Yes Additional Surgical History: colorectal surg - Social History Smoking Status: Current Some Day Smoker Substance Use Type: Alcohol - Medications Home Medications: Home Medications Medication Instructions Recorded Confirmed Last Taken Type FLUoxetine [PROzac] 20 mg PO QDAY 12/26/14 12/26/14 12/26/14 History Losartan [Cozaar] 50 mg PO QDAY 12/26/14 12/26/14 12/26/14 History amLODIPine 10 mg PO QDAY #30 tablet 08/02/16 Unknown Rx atenoloL [Tenormin] 50 mg PO QDAY #30 tablet 08/02/16 Unknown Rx Thiamine [Vitamin B-1] 100 mg PO QDAY #30 tablet 08/04/16 Unknown Rx oxyCODONE /ACETAMINOPHEN [Percocet 1 tab PO Q6HR PRN #30 tablet 08/04/16 Unknown Rx 5/325] ED Physical Exam - General Limitations: No Limitations General appearance: alert, in no apparent distress - Head Head exam: Present: normocephalic - Eye Eye exam: Present: other (Patient has ecchymosis and bruising to the periorbital region right eye) - ENT ENT exam: Present: mucous membranes moist - Neck Neck exam: Present: other (Tenderness to palpation of the midline C-spine) - Respiratory Respiratory exam: Present: normal lung sounds bilaterally. Absent: respiratory distress - Cardiovascular Cardiovascular Exam: Present: regular rate, normal rhythm. Absent: systolic murmur, diastolic murmur, rubs, gallop - GI/Abdominal GI/Abdominal exam: Present: soft, normal bowel sounds. Absent: distended, tenderness - Rectal Rectal exam: Present: deferred - Extremities Exam Extremities exam: Present: normal inspection - Back Exam Back exam: Present: normal inspection - Neurological Exam Neurological exam: Present: alert, oriented X3, CN II-XII intact. Absent: motor sensory deficit - Psychiatric Psychiatric exam: Present: normal affect, normal mood - Skin Skin exam: Present: warm, dry, intact, normal color. Absent: rash ED Course Vital Signs 01/20/20 12:21 Temperature 97.7 F Pulse Rate 77 Respiratory 16 Rate Blood Pressure 149/75 [Right] O2 Sat by Pulse 97 Oximetry ED Medical Decision Making - Lab Data Result diagrams: 01/20/20 15:06 01/20/20 15:06 Lab Results 01/20/20 01/20/20 01/20/20 Range/Units 13:29 13:29 15:06 WBC 10.7 (4.5-11.0) K/mm3 RBC 4.59 (3.65-5.03) M/mm3 Hgb 14.0 (11.8-15.2) gm/dl Hct 43.6 (35.5-45.6) % MCV 95 H (84-94) fl MCH 31 (28-32) pg MCHC 32 (32-34) % RDW 17.4 H (13.2-15.2) % Plt Count 217 (140-440) K/mm3 Lymph % (Auto) 5.6 L (13.4-35.0) % [place] % (Auto) 6.3 (0.0-7.3) % Eos % (Auto) 0.0 (0.0-4.3) % Baso % (Auto) 0.2 (0.0-1.8) % Lymph # 0.6 L (1.2-5.4) K/mm3 [place] # 0.7 (0.0-0.8) K/mm3 Eos # 0.0 (0.0-0.4) K/mm3 Baso # 0.0 (0.0-0.1) K/mm3 Seg Neutrophils % 87.9 H (40.0-70.0) % Seg Neutrophils # 9.4 H (1.8-7.7) K/mm3 Sodium (137-145) mmol/L Potassium (3.6-5.0) mmol/L Chloride (98-107) mmol/L Carbon Dioxide (22-30) mmol/L Anion Gap mmol/L BUN (9-20) mg/dL Creatinine (0.8-1.3) mg/dL Estimated GFR ml/min BUN/Creatinine Ratio % Glucose (75-100) mg/dL Calcium (8.4-10.2) mg/dL Total Bilirubin (0.1-1.2) mg/dL AST (5-40) units/L ALT (7-56) units/L Alkaline Phosphatase (35-129) units/L Total Protein (6.3-8.2) g/dL Albumin (3.9-5) g/dL Albumin/Globulin Ratio % Urine Color Yellow (Yellow) Urine Turbidity Slightly-cloudy (Clear) Urine pH 5.0 (5.0-7.0) Ur Specific [place] 1.012 (1.003-1.030) Urine Protein <15 mg/dl (Negative) mg/dL Urine Glucose (UA) Neg (Negative) mg/dL Urine Ketones Tr (Negative) mg/dL Urine Blood Neg (Negative) Urine Nitrite Neg (Negative) Urine Bilirubin Neg (Negative) Urine Urobilinogen < 2.0 (<2.0) mg/dL Ur Leukocyte Esterase Neg (Negative) Urine WBC (Auto) 3.0 (0.0-6.0) /HPF Urine RBC (Auto) 1.0 (0.0-6.0) /HPF U Epithel Cells (Auto) 1.0 (0-13.0) /HPF Urine Mucus Few /HPF Salicylates (2.8-20.0) mg/dL Urine Methadone Screen Negative Acetaminophen (10.0-30.0) ug/mL Ur Barbiturates Screen Negative Ur Phencyclidine Scrn Negative Ur Amphetamines Screen Negative U Benzodiazepines Scrn Negative Urine Cocaine Screen Negative U Marijuana (THC) Screen Negative Plasma/Serum Alcohol (0-0.07) % 01/20/20 01/20/20 01/20/20 Range/Units 15:06 15:06 15:06 WBC (4.5-11.0) K/mm3 RBC (3.65-5.03) M/mm3 Hgb (11.8-15.2) gm/dl Hct (35.5-45.6) % MCV (84-94) fl MCH (28-32) pg MCHC (32-34) % RDW (13.2-15.2) % Plt Count (140-440) K/mm3 Lymph % (Auto) (13.4-35.0) % [place] % (Auto) (0.0-7.3) % Eos % (Auto) (0.0-4.3) % Baso % (Auto) (0.0-1.8) % Lymph # (1.2-5.4) K/mm3 [place] # (0.0-0.8) K/mm3 Eos # (0.0-0.4) K/mm3 Baso # (0.0-0.1) K/mm3 Seg Neutrophils % (40.0-70.0) % Seg Neutrophils # (1.8-7.7) K/mm3 Sodium 135 L (137-145) mmol/L Potassium 4.1 (3.6-5.0) mmol/L Chloride 100.2 (98-107) mmol/L Carbon Dioxide 11 L (22-30) mmol/L Anion Gap 28 mmol/L BUN 35 H (9-20) mg/dL Creatinine 1.8 H (0.8-1.3) mg/dL Estimated GFR 37 ml/min BUN/Creatinine Ratio 19 % Glucose 165 H (75-100) mg/dL Calcium 8.9 (8.4-10.2) mg/dL Total Bilirubin 0.20 (0.1-1.2) mg/dL AST 33 (5-40) units/L ALT 27 (7-56) units/L Alkaline Phosphatase 80 (35-129) units/L Total Protein 7.4 (6.3-8.2) g/dL Albumin 4.0 (3.9-5) g/dL Albumin/Globulin Ratio 1.2 % Urine Color (Yellow) Urine Turbidity (Clear) Urine pH (5.0-7.0) Ur Specific [place] (1.003-1.030) Urine Protein (Negative) mg/dL Urine Glucose (UA) (Negative) mg/dL Urine Ketones (Negative) mg/dL Urine Blood (Negative) Urine Nitrite (Negative) Urine Bilirubin (Negative) Urine Urobilinogen (<2.0) mg/dL Ur Leukocyte Esterase (Negative) Urine WBC (Auto) (0.0-6.0) /HPF Urine RBC (Auto) (0.0-6.0) /HPF U Epithel Cells (Auto) (0-13.0) /HPF Urine Mucus /HPF Salicylates < 0.3 L (2.8-20.0) mg/dL Urine Methadone Screen Acetaminophen 5.0 L (10.0-30.0) ug/mL Ur Barbiturates Screen Ur Phencyclidine Scrn Ur Amphetamines Screen U Benzodiazepines Scrn Urine Cocaine Screen U Marijuana (THC) Screen Plasma/Serum Alcohol (0-0.07) % 01/20/20 Range/Units 15:06 WBC (4.5-11.0) K/mm3 RBC (3.65-5.03) M/mm3 Hgb (11.8-15.2) gm/dl Hct (35.5-45.6) % MCV (84-94) fl MCH (28-32) pg MCHC (32-34) % RDW (13.2-15.2) % Plt Count (140-440) K/mm3 Lymph % (Auto) (13.4-35.0) % [place] % (Auto) (0.0-7.3) % Eos % (Auto) (0.0-4.3) % Baso % (Auto) (0.0-1.8) % Lymph # (1.2-5.4) K/mm3 [place] # (0.0-0.8) K/mm3 Eos # (0.0-0.4) K/mm3 Baso # (0.0-0.1) K/mm3 Seg Neutrophils % (40.0-70.0) % Seg Neutrophils # (1.8-7.7) K/mm3 Sodium (137-145) mmol/L Potassium (3.6-5.0) mmol/L Chloride (98-107) mmol/L Carbon Dioxide (22-30) mmol/L Anion Gap mmol/L BUN (9-20) mg/dL Creatinine (0.8-1.3) mg/dL Estimated GFR ml/min BUN/Creatinine Ratio % Glucose (75-100) mg/dL Calcium (8.4-10.2) mg/dL Total Bilirubin (0.1-1.2) mg/dL AST (5-40) units/L ALT (7-56) units/L Alkaline Phosphatase (35-129) units/L Total Protein (6.3-8.2) g/dL Albumin (3.9-5) g/dL Albumin/Globulin Ratio % Urine Color (Yellow) Urine Turbidity (Clear) Urine pH (5.0-7.0) Ur Specific [place] (1.003-1.030) Urine Protein (Negative) mg/dL Urine Glucose (UA) (Negative) mg/dL Urine Ketones (Negative) mg/dL Urine Blood (Negative) Urine Nitrite (Negative) Urine Bilirubin (Negative) Urine Urobilinogen (<2.0) mg/dL Ur Leukocyte Esterase (Negative) Urine WBC (Auto) (0.0-6.0) /HPF Urine RBC (Auto) (0.0-6.0) /HPF U Epithel Cells (Auto) (0-13.0) /HPF Urine Mucus /HPF Salicylates (2.8-20.0) mg/dL Urine Methadone Screen Acetaminophen (10.0-30.0) ug/mL Ur Barbiturates Screen Ur Phencyclidine Scrn Ur Amphetamines Screen U Benzodiazepines Scrn Urine Cocaine Screen U Marijuana (THC) Screen Plasma/Serum Alcohol 0.14 H (0-0.07) % - Radiology Data Radiology results: report reviewed - Medical Decision Making Discussed results with patient CT's reviewed xrays reviewed Critical care attestation.: If time is entered above; I have spent that time in minutes in the direct care of this critically ill patient, excluding procedure time. ED Disposition Clinical Impression: Alcohol intoxication, Cervical strain, acute, Head injury Disposition: DC-01 TO HOME OR SELFCARE Is pt being admited?: No Does the pt Need Aspirin: No Condition: Stable Instructions: Minor Head Injury (ED), Cervical Spine Strain (ED), Alcohol Intoxication (ED) Additional Instructions: return if worse Referrals: KING HYDE MD [Staff Physician] - 3-5 Days Time of Disposition: 17:14
--- NOTE | 2020-01-20 14:40 | Cat Scan Report ---
CT CERVICAL SPINE: 01/20/2020 INDICATION / CLINICAL INFORMATION: head injury. Trauma COMPARISON: None available. FINDINGS: CT images of the cervical spine were obtained. Images are evaluated in the axial, coronal, and sagitt al planes. There is no evidence of acute abnormality. Degenerative disc and facet changes are present throughout the cervical spine. Disc space narrowing, endplate irregularity, and osteophyte formation is present at C3-4, C4-5, C5-6, and C6-7. LEVEL BY LEVEL ANALYSIS: . CRANIOCERVICAL JUNCTION: Unremarkable. PARASPINAL STRUCTURES: IMPRESSION: All CT scans at this location are performed using dose reduction to ALARA by means of automated expos ure control. Signer Name: Carlo Kumar MD Signed: 01/20/2020 2:36 PM Workstation Name: [email or web address]
[2020-01-20 15:51] LABS: Basophils % (Auto) 0.2 % (0.0-1.8); Hematocrit 43.6 % (35.5-45.6); Lymphocytes # (Auto) 0.6 K/mm3 (1.2-5.4); Lymphocytes % (Auto) 5.6 % (13.4-35.0); Mean Corpuscular HGB Conc 32 % (32-34); Mean Corpuscular Volume 95 fl (84-94); Monocytes # (Auto) 0.7 K/mm3 (0.0-0.8); Monocytes % (Auto) 6.3 % (0.0-7.3); Platelet Count 217 K/mm3 (140-440); Red Blood Count 4.59 M/mm3 (3.65-5.03); Red Cell Distribution Width 17.4 % (13.2-15.2)
[2020-01-20 15:55] LABS: Calcium 8.9 mg/dL (8.4-10.2)
[2020-01-20 16:18] LABS: Amphetamine Screen,Urine Negative; Benzodiazepines Screen,Urine Negative; Cannabinoid Screen,Urine Negative; Cocaine Screen,Urine Negative; Methadone Screen,Urine Negative
[2020-01-20 16:24] LABS: Bilirubin,Urine NEG (Negative); Blood,Urine NEG (Negative); Color,Urine Yellow (Yellow); Mucus,Urine FEW /HPF; Protein,Urine <15 mg/dL mg/dL (Negative); Urobilinogen,Urine < 2.0 mg/dL (<2.0)
[2020-01-20 17:34] LABS: Opiate Screen,Urine Negative
[2020-01-20 18:45] VITALS: BP 155/86
== END 2020-01-20 18:48 | disposition home or self-care (01) ==
LOC: ED 11:37
DX: S09.90XA Unspecified injury of head, initial encounter (principal); S16.1XXA Strain of muscle, fascia and tendon at neck level, initial encounter; F10.129 Alcohol abuse with intoxication, unspecified; I10 Essential (primary) hypertension; F32.9 Major depressive disorder, single episode, unspecified; F17.200 Nicotine dependence, unspecified, uncomplicated; Z87.442 Personal history of urinary calculi; Z98.890 Other specified postprocedural states; Z79.899 Other long term (current) drug therapy; X58.XXXA Exposure to other specified factors, initial encounter; Y93.89 Activity, other specified; Y92.89 Other specified places as the place of occurrence of the external cause; Y99.8 Other external cause status
CPT/HCPCS: 36415; 70450; 71045; 72125; 72170; 80053; 80307; 80320; 81001; 82962; 85025; 96374; G0480